=== PATIENT | female | born 1965 | race Two or more races ===

== ENCOUNTER 2017-09-03 11:26 | Emergency (ER) | payer MEDICAID ==
[~2017-09-03] VITALS: Ht 160 cm; Wt 90.3 kg
[~2017-09-03 11:26] MED LIST: CYMBALTA; GABA300C10; HYDR-1421; MECLIZINE; OMEP20TA34; PROVIGIL; [UNRECOGNIZED DRUG - CODE]
[2017-09-03 16:34] VITALS: BP 146/79
[2017-09-03] MEDS ORDERED: KETOROLAC TROMETH 60MG/2ML VIAL IM ONE (17:15)
== END 2017-09-03 17:45 | disposition home or self-care (01) ==
LOC: ER 11:26
DX: G89.29 Other chronic pain (principal); M54.9 Dorsalgia, unspecified; M79.1 Myalgia; I10 Essential (primary) hypertension
CPT/HCPCS: 73564; 73630; 96372; 99284; J1885

== ENCOUNTER 2024-11-13 05:48 | Inpatient (IN) | payer MEDICARE, MEDICAID ==
[~2024-11-13] VITALS: Ht 160 cm; Wt 97.3 kg
[~2024-11-13 05:48] MED LIST changes: +GABA-1250; -GABA300C10; +OMEP-337; -OMEP20TA34
--- NOTE | 2024-11-13 06:43 | ED.PDOC ---
GI ASSESSMENT HPI Comments HPI: Poor Historian. 59-year-old female presents to the emergency department for evaluation of lower abdominal pain that started as cramps then followed by bright red blood per rectum. Patient denies any associated nausea or vomiting or diarrhea. Denies any urinary symptoms. Patient takes oxycodone daily. Patient fell forward on her left knee proximally 10 days ago in complains of some left knee pain. Patient was ambulating independently in the ED. patient is not on blood thinners. Denies any other acute symptoms. Patient says she has chronic leg pain and joint pain but got worse on her left knee after the fall. Denies any other injury or trauma. Past Medical History: HLD, ANEMIA, HTN, fibromyalgia, arthritis, chronic pain syndrome Past Surgical History: INGUINAL & UMBILICAL HERNIA REPAIR, X 4, TONSILLECTOMY, Social History: DENIES TOBACCO, ETOH, & DRUG USE. Medications: OXYCODONE, SLEEP AID MEDICATION Allergies: NKDA REVIEW OF SYSTEMS: CONSTITUTIONAL: Denies acute: fever, diaphoresis, chills, generalized weakness. HEAD: Denies acute: headache, photophobia Eyes: Denies acute: Double vision, vision loss, eye pain, eye discharge. EARS: Denies acute: tinnitus, hearing loss, ear discharge, ear pain, THROAT: Denies acute: sore throat, swelling, difficulty swallowing , pain with swallowing, change in voice. NECK: Denies acute: neck pain, neck swelling, stiff neck. HEART: Denies acute : chest pain, palpitations, LUNGS: Denies acute: SOB, wheezing, cough, hemoptysis ABDOMEN: Denies acute: Nausea, Vomiting, diarrhea, melena , hematemesis, SKIN: Denies acute: rash, redness, lesions, itchiness. EXTREMITIES: Denies acute: calf pain, numbness, tingling, weakness, Denies acute: Low back pain. Neuro: Denies acute: focal neurological deficit, motor or sensory focal neurological deficit, tremors, seizure like activity, confusion, dizziness, change in mental status, loss of bowel or bladder function, cauda equina like symptoms. : Denies acute: dysuria, hematuria, flank pain, increase in urinary frequency. PSYCH: Denies acute: hallucination, suicidal ideation, homicidal ideation. FEMALE: Denies acute: abnormal vaginal bleeding, foul odor, unusual discharge. PHYSICAL EXAM: General: no acute distress, awake and alert. Head: normocephalic, atraumatic. Neck: supple, trachea is midline, no swelling. Throat: Normal phonation. Eyes:, no erythema, no purulent discharge, no proptosis, no icterus. Heart: regular rate, regular rhythm, no significant murmur appreciated. Lungs: no apparent respiratory distress, Able to speak in full sentences. No wheezing, no rhonchi, no crackles. No stridors Clear to auscultation bilaterally. Abdomen: Minimal bilateral lower abdominal tender to palpation, non distended, soft, no guarding, no rebound, + bowel sounds. Neuro: Awake, Alert, oriented to name, self, situation, follows commands GCS=15. Speech is normal. Skin: no petechia, no purpura, no cyanosis, non-pale, not jaundice. Lower extremities: --no - Pitting edema no deformity, no focal swelling, no calf TTP. Evaluation of the left knee. Minimal swelling. Some tenderness to palpation. No bruising or or deformity. Makes eye contact. moves all four extremities. Face: no apparent facial droop. Ambulating in the ED independently. ED COURSE: Chief Complaint: Abdominal Pain Time Seen by MD: 06:36 Primary Care Provider: LAURYN Reviewed Notes: Nurses Notes, Medications, Allergies Allergies: Coded Allergies: NO KNOWN ALLERGIES (Unverified , 03/07/10) Home Meds Reported Medications Cetirizine Hcl (Kls [place]) 10 Mg Tab, 1 TAB PO DAILY, #30 TAB 3 Refills 11/13/24 Zolpidem Tartrate (Zolpidem Tartrate) 5 Mg Tab, 1 TAB PO QPM, #30 TAB 1 Refill 11/13/24 Diclofenac Sodium (Topical) (Voltaren Arthritis Pain) 1 % Gel, 1 % EX, GEL 11/13/24 Pantoprazole Sodium (PANTOPRAZOLE SODIUM) 40 Mg Inj, 40 MG PO PRN, INJ 11/13/24 Venlafaxine Hcl (Venlafaxine Hcl Er) 150 Mg Cap, 1 CAP PO DAILY, #30 CAP 1 Refill 11/13/24 Oxycodone W/ Acetaminophen (Oxycodone and Acetaminoph 7.5-300 mg) 1 Tab Tab, 1 TAB PO Q8HPRN, TAB 11/13/24 [Cymbalta] No Conflict Check 03/07/10 Hydrocodone-Ibuprofen (Vicoprofen) Tab 03/07/10 [Provigil] No Conflict Check 03/07/10 [Meclizine] No Conflict Check 03/07/10 Omeprazole (Eq Omeprazole) 20 Mg Tab 03/07/10 Discontinued Reported Medications Hydrocodone-Acetaminophen (Vicodin) 1 Tab Tab 03/07/10 Gabapentin (Gabapentin) 300 Mg Cap 03/07/10 Information Source: Patient Mode of Arrival: Ambulatory Past Medical History PAST MEDICAL HISTORY: Anemia, HTN Surgical History: Hernia Repair GERM DRIER History: No Pertinent GERM DRIER History Family History Family History: Unknown Social History Smoker: Non-Smoker Alcohol: Denies ETOH Use Drugs: Denies Drug Use Lives In: Home Was a procedure done? Was a procedure done?: No GI differential Dx Differential Diagnosis: Other ( Diverticulitis, colitis, fistula, neoplasm, hemorrhoids, anal fissures, constipation, Crohn's disease, ulcerative colitis) X-Ray, Labs, Meds, VS Vital Signs Date Time Temp Pulse Resp B/P (MAP) Pulse Ox O2 Delivery O2 Flow Rate FiO2 11/13/24 08:02 97.9 71 18 145/83 (103) 96 97.9 11/13/24 07:35 Room Air* 0 21 11/13/24 05:56 97.7 84 16 132/67 (88) 97 Lab Test 11/13/24 06:47 11/13/24 06:01 Range/Units White Blood Count 6.2 4.4-10.8 10^3/uL Red Blood Count 4.74 4.0-5.20 10^6/uL Hemoglobin 14.3 12.2-16.2 g/dL Hematocrit 41.9 36.0-46.0 % Mean Corpuscular Volume 88.3 80.0-100.0 fL Mean Corpuscular Hemoglobin 30.1 28.0-32.0 pg Mean Corpuscular Hemoglobin Concent 34.1 32.0-36.0 g/dL Red Cell Distribution Width 13.8 11.8-14.3 % Platelet Count 263 140-450 10^3/uL Mean Platelet Volume 9.4 6.9-10.8 fL Neutrophils (%) (Auto) 58.4 37.0-80.0 % Lymphocytes (%) (Auto) 29.3 10.0-50.0 % Monocytes (%) (Auto) 7.0 0.0-12.0 % Eosinophils (%) (Auto) 3.9 0.0-7.0 % Basophils (%) (Auto) 1.4 0.0-2.0 % Neutrophils # (Auto) 3.6 1.6-8.6 10 ^3/uL Lymphocytes # (Auto) 1.8 0.4-5.4 10 ^3/uL Monocytes # (Auto) 0.4 0-1.3 10 ^3/uL Eosinophils # (Auto) 0.2 0-0.8 10 ^3/uL Basophils # (Auto) 0.1 0-0.2 10 ^3/uL Nucleated Red Blood Cells 0.1 % Prothrombin Time 10.0 9.3-11.8 sec Prothrombin Time INR 0.94 0.9-1.15 Activated Partial Thromboplast Time 27.6 24.5-34.5 SEC Sodium Level 145 136-145 mmol/L Potassium Level 4.1 3.5-5.1 mmol/L Chloride Level 111 H 98-107 mmol/L Carbon Dioxide Level 28 20-31 mmol/L Anion Gap 6 5-15 Blood Urea Nitrogen 19 9-23 mg/dL Creatinine 0.69 0.550-1.02 mg/dL Glomerular Filtration Rate Calc 100 >90 mL/min BUN/Creatinine Ratio 27.5 H 10.0-20.0 Serum Glucose 92 74-106 mg/dL Lactic Acid Level 0.9 0.4-2.0 mmol/L Calcium Level 9.6 8.7-10.4 mg/dL Total Bilirubin 0.5 0.2-1.0 mg/dL Aspartate Amino Transferase (AST) 27 13-40 U/L Alanine Aminotransferase (ALT) 28 7-40 U/L Alkaline Phosphatase 128 H 46-116 U/L Troponin I High Sensitivity < 3 L </=34 ng/L Total Protein 7.1 5.7-8.2 g/dL Albumin 4.6 3.2-4.8 g/dL Lipase 55 H 12-53 U/L Urine Color Light-yellow Yellow Urine Clarity Cloudy H Clear Urine pH 6.5 5.0-9.0 Urine Specific [place] 1.023 1.001-1.035 Urine Protein Negative Negative Urine Ketones Negative Negative Urine Blood Negative Negative /uL Urine Nitrite Negative Negative Urine Bilirubin Negative Negative Urine Urobilinogen Normal Negative mg/dL Urine Leukocyte Esterase 2+ Negative /uL Urine RBC None seen 0 - 4 /hpf Urine Microscopic WBC 3 0-5 /HPF Urine Squamous Epithelial Cells Few <5 /hpf Urine Bacteria Few H None Seen /hpf Urine Mucus Few None Seen Urine Glucose Normal Normal mg/dL Current Medications Medications (Trade) Dose Ordered Sig/Patsor Route Start Time Stop Time Status Last Admin Pantoprazole Sodium (Protonix) 40 mg ONCE ONCE IV 11/13/24 07:00 11/13/24 07:01 DC 11/13/24 08:00 Piperacillin Sod/ Tazobactam Sod 100 ml @ 100 mls/hr ONCE ONCE IV 11/13/24 08:15 11/13/24 09:14 DC 11/13/24 09:28 Acetaminophen/ Hydrocodone Bitart ([place] 5/325MG Tab) 1 tab Q6HPRN PRN PO 11/13/24 09:15 11/13/24 12:01 [place] [id number] Ph: [phone] DIAGNOSTIC IMAGING Diagnostic Imaging Report : [id number] Signed PATIENT: ANANT MONTOYA ACCT: [id number] UNIT: [id number] : 1965 LOC: ER ROOM / BED: / AGE / SEX: 59 / F ADM STATUS: REG ER SERVICE 0619 ORDERING PHYSICIAN: GAGANDEEP FRANCIS DO PROCEDURE(s): ABPL - CT AB PEL WO CON-NO ORAL OR IV REASON: abd pain, rectal bleed ORDER NUMBER(s): [id number], ACCESSION NUMBER(s): [id number] Exam: CT CT AB PEL WO CON-NO ORAL OR IV History: abd pain, rectal bleed Comparison Study: None available at time of dictation. Technique: Multidetector spiral CT of the abdomen and pelvis was performed from lung bases to pubic symphysis. Imaging was performed without intravenous contrast. Coronal and sagittal multiplanar reformats were obtained from the axial data set by the technologist. Radiation Dose : 1. Abdomen/Pelvis: CTDIvol 24.4 mGy, DLP 1636.2 mGy*cm. Findings: Evaluation of vasculature and solid organs is limited due to lack of intravenous contrast use. Lung Bases: Lung bases are clear. Visualized portions of the heart and pericardium are unremarkable. Liver: The liver is normal in size. No focal lesions. Gallbladder and Biliary Tree: The gallbladder is unremarkable. No intrahepatic or extrahepatic biliary ductal dilatation. Spleen: Unremarkable Pancreas: The pancreas is grossly unremarkable. Adrenal Glands: Unremarkable Kidneys: Kidneys are unremarkable without calculi or hydronephrosis. GI tract: The stomach is grossly normal in appearance. No evidence of small bowel wall thickening or abnormal dilatation to suggest bowel obstruction. Sigm oid diverticulosis without acute diverticulitis. Normal appendix. Peritoneum/mesentery/retroperitoneum. No evidence of free intraperitoneal air. No ascites. No evidence of suspicious lymphadenopathy. Abdominal Wall: There is a fat containing supraumbilical hernia. There is fat stranding in the hernia. There is a small fat containing umbilical hernia. Vasculature: The visualized abdominal aorta is normal in size and caliber. Evaluation of abdominal and pelvic vessels is limited due to lack of intravenous contrast. Urinary Bladder: Grossly unremarkable for degree of distention. Pelvic Organs: Hysterectomy. Musculoskeletal: No aggressive focal bony lesions, acute fractures or dislocation. IMPRESSION: 1. Fat containing supraumbilical hernia with stranding of the fat. Correlation for incarcerated hernia recommended. 2. Sigmoid diverticulosis without acute diverticulitis. 3. No free fluid or pneumoperitoneum. ATED BY: RUBY JIMENEZ MD DICTATED DATE/TIME: 11/13/24711 SIGNED BY: RUBY JIMENEZ MD SIGNED DATE/TIME: 11/13/24711 [place] [address] Ph: [phone] DIAGNOSTIC IMAGING Diagnostic Imaging Report : [id number] Signed PATIENT: ANANT MONTOYA ACCT: [id number] UNIT: [id number] : 1965 LOC: ER ROOM / BED: / AGE / SEX: 59 / F ADM STATUS: REG ER SERVICE 8 ORDERING PHYSICIAN: GAGANDEEP FRANCIS DO PROCEDURE(s): LKNE3 - L KNEE 3V XRAY REASON: fall ORDER NUMBER(s): [id number], ACCESSION NUMBER(s): [id number] CLINICAL INDICATION: fall TECHNIQUE: XY L KNEE 3V XRAY Comparison: None FINDINGS/IMPRESSION: : There is no evidence of acute fracture or dislocation. Small joint effusion. ATED BY: MIKE SEAY MD DICTATED DATE/TIME: 11/13/24644 SIGNED BY: MIKE SEAY MD SIGNED DATE/TIME: 11/13/24644 CC: [place] [address] Ph: [phone] DIAGNOSTIC IMAGING Diagnostic Imaging Report : [id number] Signed PATIENT: ANANT MONTOYA ACCT: [id number] UNIT: [id number] : 1965 LOC: ER ROOM / BED: / AGE / SEX: 59 / F ADM STATUS: REG ER SERVICE 5 ORDERING PHYSICIAN: GAGANDEEP FRANCIS DO PROCEDURE(s): LLDVT - LT Lower DVT REASON: pain ORDER NUMBER(s): [id number], ACCESSION NUMBER(s): [id number] EXAM: US Duplex Left Lower Extremity Veins CLINICAL INDICATION: pain TECHNIQUE: Real-time duplex ultrasound scan of the left lower extremity veins integrating B-mode two-dimensional vascular structure, Doppler spectral analysis, color flow Doppler imaging and compression. COMPARISON: None FINDINGS: DEEP VEINS: Unremarkable. No DVT in the visualized common femoral, femoral, proximal deep femoral or popliteal veins. The veins demonstrate normal color flow, are normally compressible, with normal phasic flow and/or augmentation response. SUPERFICIAL VEINS: Unremarkable. No thrombus in the visualized great saphenous vein. SOFT TISSUES: Probable Menchaca's cysts measuring up to 3.7 cm. OTHER FINDINGS: . IMPRESSION: No DVT. ATED BY: JESUS QUINONES MD DICTATED DATE/TIME: 11/13/24742 SIGNED BY: JESUS QUINONES MD SIGNED DATE/TIME: 11/13/24742 Images Reviewed?: Images reviewed and evaluated by me Time of 1ST Reevaluation: 07:06 Reevaluation 1ST: Unchanged Patient Education/Counseling: Diagnosis, Treatment, Prognosis Family Education/Counseling: Diagnosis, Treatment, Prognosis Comments Patient presented with the above HPI.---rectal bleed---workup was initiated. patient was found with the above mentioned diagnosis. the following medications were ordered: please refer to order lists of meds and tests obtained by myself Dr. Francis. Patient ED course and VS have been stabilized. Patient has been reassessed in the ED and remained in a stable condition. Pertinent incidental findings were discussed with the patient and/or family. Patient/family voices understanding and is agreeable with plan. Patient has been observed in the ED adequate length of time to insure improvement/stability. Escalation of care considered: Consideration of escalation to observation or admission Patient was ADMITTED to the medicine team for further evaluation and treatment of their presentation. General surgery was consulted. All the reports of any imaging studies that were ordered by myself were reviewed by myself. Departure 1 Departure Time of Disposition: 08:14 Impression: Primary Impression: Rectal bleeding Additional Impressions: Incarcerated hernia UTI (urinary tract infection) Disposition: ADMITTED INPATIENT Admit to: Tele Condition: Guarded Discharged With: Self Critical Care Note Critical Care Time?: No I personally scribed for GAGANDEEP FRANCIS DO ([email or web address]) on 11/13/24 at 06:43. Electronically submitted by Klaus Gillespie ([email or web address]). I personally scribed for GAGANDEEP FRANCIS DO ([email or web address]) on 11/13/24 at 06:44. Electronically submitted by Klaus Gillespie ([email or web address]). I personally scribed for GAGANDEEP FRANCIS DO ([email or web address]) on 11/13/24 at 08:11. Electronically submitted by Klaus Gillespie ([email or web address]). GAGANDEEP FRANCIS DO Nov 13, 2024 06:43
--- NOTE | 2024-11-13 06:50 | DVH ---
CLINICAL INDICATION: fall TECHNIQUE: XY L KNEE 3V XRAY Comparison: None FINDINGS/IMPRESSION: : There is no evidence of acute fracture or dislocation. Small joint effusion.
[2024-11-13 07:01] LABS: Basophils # (auto) 0.1 10 ^3/uL (0-0.2); Basophils % (auto) 1.4 % (0.0-2.0); Eosinophils # (auto) 0.2 10 ^3/uL (0-0.8); Eosinophils % (auto) 3.9 % (0.0-7.0); Hematocrit 41.9 % (36.0-46.0); Hemoglobin 14.3 g/dL (12.2-16.2); Lymphocytes # (auto) 1.8 10 ^3/uL (0.4-5.4); Lymphocytes % (auto) 29.3 % (10.0-50.0); Mean Corpuscular Hemoglobin 30.1 pg (28.0-32.0); Mean Corpuscular Hgb Conc. 34.1 g/dL (32.0-36.0); Mean Corpuscular Volume 88.3 fL (80.0-100.0); Monocytes # (auto) 0.4 10 ^3/uL (0-1.3); Neutrophils # (auto) 3.6 10 ^3/uL (1.6-8.6); Neutrophils % (auto) 58.4 % (37.0-80.0); Nucleated Red Blood Cells % 0.1 %; Platelet Count (auto) 263 10^3/uL (140-450); Red Blood Cells 4.74 10^6/uL (4.0-5.20); Red Cell Distribution Width 13.8 % (11.8-14.3); White Blood Cell 6.2 10^3/uL (4.4-10.8)
--- NOTE | 2024-11-13 07:15 | DVH ---
Exam: CT CT AB PEL WO CON-NO ORAL OR IV History: abd pain, rectal bleed Comparison Study: None available at time of dictation. Technique: Multidetector spiral CT of the abdomen and pelvis was performed from lung bases to pubic s ymphysis. Imaging was performed without intravenous contrast. Coronal and sagittal multiplanar reform ats were obtained from the axial data set by the technologist. Radiation Dose : 1. Abdomen/Pelvis: CTDIvol 24.4 mGy, DLP 1636.2 mGy*cm. Findings: Evaluation of vasculature and solid organs is limited due to lack of intravenous contrast use. Lung Bases: Lung bases are clear. Visualized portions of the heart and pericardium are unremarkable. Liver: The liver is normal in size. No focal lesions. Gallbladder and Biliary Tree: The gallbladder is unremarkable. No intrahepatic or extrahepatic bilia ry ductal dilatation. Spleen: Unremarkable Pancreas: The pancreas is grossly unremarkable. Adrenal Glands: Unremarkable Kidneys: Kidneys are unremarkable without calculi or hydronephrosis. GI tract: The stomach is grossly normal in appearance. No evidence of small bowel wall thickening or abnormal dilatation to suggest bowel obstruction. Sigmoid diverticulosis without acute diverticulitis . Normal appendix. Peritoneum/mesentery/retroperitoneum. No evidence of free intraperitoneal air. No ascites. No evidenc e of suspicious lymphadenopathy. Abdominal Wall: There is a fat containing supraumbilical hernia. There is fat stranding in the herni a. There is a small fat containing umbilical hernia. Vasculature: The visualized abdominal aorta is normal in size and caliber. Evaluation of abdominal a nd pelvic vessels is limited due to lack of intravenous contrast. Urinary Bladder: Grossly unremarkable for degree of distention. Pelvic Organs: Hysterectomy. Musculoskeletal: No aggressive focal bony lesions, acute fractures or dislocation. IMPRESSION: 1. Fat containing supraumbilical hernia with stranding of the fat. Correlation for incarcerated osmany ia recommended. 2. Sigmoid diverticulosis without acute diverticulitis. 3. No free fluid or pneumoperitoneum.
[2024-11-13 07:17] LABS: Alanine Aminotransferase 28 U/L (7-40); Albumin 4.6 g/dL (3.2-4.8); Anion Gap 6 (5-15); Aspartate Aminotransferase 27 U/L (13-40); BUN/Creatinine Ratio 27.5 (10.0-20.0); Blood Urea Nitrogen 19 mg/dL (9-23); Calcium 9.6 mg/dL (8.7-10.4); Carbon Dioxide 28 mmol/L (20-31); Glucose 92 mg/dL (74-106); Potassium 4.1 mmol/L (3.5-5.1); Sodium 145 mmol/L (136-145); Total Protein 7.1 g/dL (5.7-8.2)
[2024-11-13 07:18] LABS: Bilirubin, Total 0.5 mg/dL (0.2-1.0)
[2024-11-13 07:30] LABS: Alkaline Phosphatase 128 U/L (46-116); Chloride 111 mmol/L (98-107)
[2024-11-13 07:36] LABS: Urine Bacteria FEW /hpf (None Seen); Urine Blood Negative /uL (Negative); Urine Color Light-Yellow (Yellow); Urine Mucus FEW (None Seen); Urine Protein, UAD Negative (Negative); Urine Specific Gravity 1.023 (1.001-1.035); Urine Squamous Epithelial Cell FEW /hpf (<5); Urine Urobilinogen Normal (Negative); Urine WBC 3 /HPF (0-5); Urine pH 6.5 (5.0-9.0)
[2024-11-13 07:41] LABS: Urine Clarity Cloudy (Clear)
--- NOTE | 2024-11-13 07:46 | DVH ---
EXAM: US Duplex Left Lower Extremity Veins CLINICAL INDICATION: pain TECHNIQUE: Real-time duplex ultrasound scan of the left lower extremity veins integrating B-mode two -dimensional vascular structure, Doppler spectral analysis, color flow Doppler imaging and compressio n. COMPARISON: None FINDINGS: DEEP VEINS: Unremarkable. No DVT in the visualized common femoral, femoral, proximal deep femoral or popliteal veins. The veins demonstrate normal color flow, are normally compressible, with normal phasic flow and/or augmentation response. SUPERFICIAL VEINS: Unremarkable. No thrombus in the visualized great saphenous vein. SOFT TISSUES: Probable Menchaca's cysts measuring up to 3.7 cm. OTHER FINDINGS: . IMPRESSION: No DVT.
[2024-11-13 07:54] LABS: Lipase 55 U/L (12-53)
[2024-11-13] MEDS: PANTOPRAZOLE 40 MG/10 ML VIAL INJ IV ONE (08:00)
[2024-11-13 08:43] LABS: INR 0.94 (0.9-1.15); Partial Thromboplastin Time 27.6 SEC (24.5-34.5)
[2024-11-13] MEDS ORDERED: ONDANSETRON HCL 4 MG/2 ML VIAL IV PRN (09:15)
[2024-11-13] MEDS ORDERED: MORPHINE SULFATE INJ 2 MG/ml SYRG IV PRN (09:15)
[2024-11-13] MEDS ORDERED: ACETAMINOPHEN 500 MG TAB or CAP PO PRN (09:15)
--- NOTE | 2024-11-13 09:19 | DVHHP2 ---
History of Present Illness Reason for Visit: Abdominal pain, constipation, left leg weakness History of Present Illness Patient was a 59-year-old female presenting to the emergency room with complaints of abdominal pain, left inguinal pain, constipation, and left leg weakness. Patient was states that she has been dealing with both ventral and left inguinal hernia for quite some time, stating that she was had surgery in the past two both hernias. She states that she continues to have bulging to her upper abdomen and pain to her left inguinal area. She states that she has inter mittent constipation with her last bowel movement having some strict bleeding with her stool. There is significant history of the patient includes fibromyalgia, chronic opiate use with oxycodone, dyslipidemia, and hypertension. Cardiovascular: HTN, hyperipidemia GI: Constipation Rheumatologic: Fibromyalgia Past Surgical History: , Other (Hernia surgery to left inguinal and ventral hernia) Family History: None Smoke: No ALCOHOL: none Drugs: None Lives: with Family Domestic Violence: Neg Review of Systems Constitutional: No: Fever, Chills, Sweats, Weakness, Malaise, Other Eyes: No: Pain, Vision change, Conjunctivae inflammation, Eyelid inflammation, Other, Redness ENT: No: Ear pain, Ear discharge, Nose pain, Nose discharge, Nose congestion, Mouth pain, Mouth swelling, Throat pain, Throat swelling, Other Respiratory: No: Cough, Dry, Shortness of breath, SOB with excertion, Wheezing, Hemoptysis, Pleuritic Pain, Sputum, Wheezing, Other Cardiovascular: No: Chest Pain, Palpitations, Orthopnea, Paroxysmal Noc. Dyspnea, Edema, Lt Headedness, Other Gastrointestinal: Abdominal Pain, Constipation Genitourinary: No Dysuria, No Frequency, No Incontinence, No Hematuria, No Retention, No Other Musculoskeletal: No: other, neck pain, shoulder pain, arm pain, back pain, hand pain, leg pain, foot pain Skin: No: Rash, Lesions, Jaundice, Bruising, Other Neurological: No: Weakness, Numbness, Incoordination, Change in speech, Confusion, Seizures, Other Allergies: Coded Allergies: NO KNOWN ALLERGIES (Unverified , 03/07/10) Medications Current Medications Medications Dose Ordered Sig/Pastor Route Start Time Stop Time Status Last Admin Dose Admin Docusate Sodium 100 mg BID PO 11/13/24 10:00 UNV Morphine Sulfate 1 mg Q4HPRN PRN IV 11/13/24 09:15 UNV Acetaminophen/ Hydrocodone Bitart 1 tab Q6HPRN PRN PO 11/13/24 09:15 UNV Acetaminophen 500 mg Q8HP PRN PO 11/13/24 09:15 UNV Ondansetron HCl 4 mg Q6HP PRN IV 11/13/24 09:15 UNV Lisinopril 5 mg DAILY PO 11/13/24 10:00 UNV Pantoprazole Sodium 40 mg DAILY IV 11/13/24 10:00 UNV Exam Vital Signs Vital Signs Date Time Temp Pulse Resp B/P (MAP) Pulse Ox O2 Delivery O2 Flow Rate FiO2 11/13/24 08:02 97.9 71 18 145/83 (103) 96 97.9 11/13/24 07:35 Room Air* 0 21 General Appearance: Alert, Oriented X3, Cooperative, mild distress HEENT: Atraumatic, PERRLA Respiratory: Clear to auscultation, Normal air movement Cardiovascular: Normal S1, Normal S2 Abdominal: Normal bowel sounds, Soft, Other (Supraumbilical hernia, left inguinal hernia) Extremities: No clubbing, No cyanosis, Normal pulses, No tenderness/swelling, Other (Plus one bilateral lower extremity edema) Skin: No rashes, No breakdown Neuro: Normal gait, Normal speech, Sensation intact, Cranial nerves 3-12 NL Psych/Mental Status: Mental status NL, Mood NL Labs/Xrays Labs Test 11/13/24 06:47 11/13/24 06:01 Range/Units White Blood Count 6.2 4.4-10.8 10^3/uL Red Blood Count 4.74 4.0-5.20 10^6/uL Hemoglobin 14.3 12.2-16.2 g/dL Hematocrit 41.9 36.0-46.0 % Mean Corpuscular Volume 88.3 80.0-100.0 fL Mean Corpuscular Hemoglobin 30.1 28.0-32.0 pg Mean Corpuscular Hemoglobin Concent 34.1 32.0-36.0 g/dL Red Cell Distribution Width 13.8 11.8-14.3 % Platelet Count 263 140-450 10^3/uL Mean Platelet Volume 9.4 6.9-10.8 fL Neutrophils (%) (Auto) 58.4 37.0-80.0 % Lymphocytes (%) (Auto) 29.3 10.0-50.0 % Monocytes (%) (Auto) 7.0 0.0-12.0 % Eosinophils (%) (Auto) 3.9 0.0-7.0 % Basophils (%) (Auto) 1.4 0.0-2.0 % Neutrophils # (Auto) 3.6 1.6-8.6 10 ^3/uL Lymphocytes # (Auto) 1.8 0.4-5.4 10 ^3/uL Monocytes # (Auto) 0.4 0-1.3 10 ^3/uL Eosinophils # (Auto) 0.2 0-0.8 10 ^3/uL Basophils # (Auto) 0.1 0-0.2 10 ^3/uL Nucleated Red Blood Cells 0.1 % Prothrombin Time 10.0 9.3-11.8 sec Prothrombin Time INR 0.94 0.9-1.15 Activated Partial Thromboplast Time 27.6 24.5-34.5 SEC Sodium Level 145 136-145 mmol/L Potassium Level 4.1 3.5-5.1 mmol/L Chloride Level 111 H 98-107 mmol/L Carbon Dioxide Level 28 20-31 mmol/L Anion Gap 6 5-15 Blood Urea Nitrogen 19 9-23 mg/dL Creatinine 0.69 0.550-1.02 mg/dL Glomerular Filtration Rate Calc 100 >90 mL/min BUN/Creatinine Ratio 27.5 H 10.0-20.0 Serum Glucose 92 74-106 mg/dL Lactic Acid Level 0.9 0.4-2.0 mmol/L Calcium Level 9.6 8.7-10.4 mg/dL Total Bilirubin 0.5 0.2-1.0 mg/dL Aspartate Amino Transferase (AST) 27 13-40 U/L Alanine Aminotransferase (ALT) 28 7-40 U/L Alkaline Phosphatase 128 H 46-116 U/L Troponin I High Sensitivity < 3 L </=34 ng/L Total Protein 7.1 5.7-8.2 g/dL Albumin 4.6 3.2-4.8 g/dL Lipase 55 H 12-53 U/L Urine Color Light-yellow Yellow Urine Clarity Cloudy H Clear Urine pH 6.5 5.0-9.0 Urine Specific [place] 1.023 1.001-1.035 Urine Protein Negative Negative Urine Ketones Negative Negative Urine Blood Negative Negative /uL Urine Nitrite Negative Negative Urine Bilirubin Negative Negative Urine Urobilinogen Normal Negative mg/dL Urine Leukocyte Esterase 2+ Negative /uL Urine RBC None seen 0 - 4 /hpf Urine Microscopic WBC 3 0-5 /HPF Urine Squamous Epithelial Cells Few <5 /hpf Urine Bacteria Few H None Seen /hpf Urine Mucus Few None Seen Urine Glucose Normal Normal mg/dL Assessment/Plan Assessment/Plan Impression: -ventral and left inguinal hernia -constipation -rectal bleeding -obesity -primary hypertension -dyslipidemia -chronic opiate use -complicated cystitis Plan: -admit to Medical/Surgical unit -agree with surgical consultation -patient ambulating, denies having nausea or vomiting. Attempt clear liquid diet -stool softeners -continue antibiotic therapy with Zosyn -antihypertensive -PUD, DVT prophylaxis -chest x-ray -further course of treatment per surgical recommendations Total time spent with patient discussing and formulating plan of care: 35 minutes. This medical document was created using an electronic medical record system with [employer] dictation system. Although this document has been carefully reviewed, there may still be some phonetic and typographical errors. These areas are purely typographical due to imperfections of the software programs, and do not reflect any compromise in the patient's medical care. Plan discussed with: Patient, Other (RN) My Orders Orders - DOC IRBY NP Procedure Category Date Status Time Admit ADMIT 11/13/24 Transmitted 09:04 Oxygen By Nasal RT 11/13/24 Transmitted Cannula 09:04 Clear Liq Diet DIET 11/13/24 Transmitted Breakfast Docusate Sodium PHA 11/13/24 Logged Capsule (Colace 10:00 Urine Bacterial GARO 11/13/24 Logged Culture 09:04 Morphine Sulfate PHA 11/13/24 Logged Injection 09:15 Hydrocodone-Acet PHA 11/13/24 Logged 5/325mg Tab ([place] 09:15 Acetaminophen Tab Or PHA 11/13/24 Logged Cap (Tylenol Tablet 09:15 Ondansetron Hcl PHA 11/13/24 Logged (Zofran) 09:15 Sequential LING 11/13/24 In Process Compression Device 09:04 BRP LING 11/13/24 In Process 09:04 Stool Occult Blood LAB 11/13/24 Logged 09:04 Lisinopril Tablet PHA 11/13/24 Logged (Zestril Tablet) 10:00 Chest Xray 1 View XY 11/13/24 Logged 09:04 Pantoprazole PHA 11/13/24 Logged (Protonix) 10:00 Date of Service: Nov 13, 2024 Billing Provider: DOC IRBY NP Common Visit Codes: [id number] INP/OBS CARE (HIGH) DOC IRBY NP Nov 13, 2024 09:19
[2024-11-13] MEDS: PIPERACILLIN-TAZOB 3.375GM 100 ML IV ONE (09:28)
--- NOTE | 2024-11-13 09:36 | DVH ---
CHEST RADIOGRAPH Indication: Pain Technique: Single frontal view of the chest was obtained COMPARISON: None FINDINGS: Lines and Tubes: None Lungs: Clear Pleura: No effusion. No pneumothorax. Cardiomediastinal contours: Unremarkable Bones: Unremarkable IMPRESSION: No acute disease.
[2024-11-13] MEDS: DOCUSATE SOD 100 MG CAP PO SCH (10:19)
[2024-11-13] MEDS: LISINOPRIL 5 MG TAB PO SCH (10:20)
--- NOTE | 2024-11-13 11:30 | DVHINCON2 ---
Date of service: Nov 13, 2024 Allergies: Coded Allergies: NO KNOWN ALLERGIES (Unverified , 03/07/10) Home Meds Reported Medications [Cymbalta] No Conflict Check 03/07/10 Hydrocodone-Ibuprofen (Vicoprofen) Tab 03/07/10 Hydrocodone-Acetaminophen (Vicodin) 1 Tab Tab 03/07/10 [Provigil] No Conflict Check 03/07/10 [Meclizine] No Conflict Check 03/07/10 Gabapentin (Gabapentin) 300 Mg Cap 03/07/10 Omeprazole (Eq Omeprazole) 20 Mg Tab 03/07/10 Current Medications Current Medications Medications (Trade) Dose Ordered Sig/Pastor Route PRN Reason Start Time Stop Time Status Last Admin Docusate Sodium (Colace Capsule) 100 mg BID PO 11/13/24 10:00 11/13/24 10:19 Morphine Sulfate 1 mg Q4HPRN PRN IV SEVERE PAIN (7-10 PAIN SCALE) 11/13/24 09:15 Acetaminophen/ Hydrocodone Bitart ([place] 5/325MG Tab) 1 tab Q6HPRN PRN PO MODERATE PAIN (4-6 PAIN SCALE) 11/13/24 09:15 Acetaminophen (Tylenol Tablet Or Capsule) 500 mg Q8HP PRN PO PAIN SCALE 1-3 OR TEMP>100.4 11/13/24 09:15 Ondansetron HCl (Zofran) 4 mg Q6HP PRN IV NAUSEA / VOMITING 11/13/24 09:15 Lisinopril (Zestril Tablet) 5 mg DAILY PO 11/13/24 10:00 11/13/24 10:20 Pantoprazole Sodium (Protonix) 40 mg DAILY IV 11/14/24 10:00 Vital Signs Vital Signs Date Time Temp Pulse Resp B/P (MAP) Pulse Ox O2 Delivery O2 Flow Rate FiO2 11/13/24 10:20 135/82 11/13/24 08:02 97.9 71 18 96 97.9 11/13/24 07:35 Room Air* 0 21 Labs/Diagnostic Data Labs Test 11/13/24 06:47 11/13/24 06:01 Range/Units White Blood Count 6.2 4.4-10.8 10^3/uL Red Blood Count 4.74 4.0-5.20 10^6/uL Hemoglobin 14.3 12.2-16.2 g/dL Hematocrit 41.9 36.0-46.0 % Mean Corpuscular Volume 88.3 80.0-100.0 fL Mean Corpuscular Hemoglobin 30.1 28.0-32.0 pg Mean Corpuscular Hemoglobin Concent 34.1 32.0-36.0 g/dL Red Cell Distribution Width 13.8 11.8-14.3 % Platelet Count 263 140-450 10^3/uL Mean Platelet Volume 9.4 6.9-10.8 fL Neutrophils (%) (Auto) 58.4 37.0-80.0 % Lymphocytes (%) (Auto) 29.3 10.0-50.0 % Monocytes (%) (Auto) 7.0 0.0-12.0 % Eosinophils (%) (Auto) 3.9 0.0-7.0 % Basophils (%) (Auto) 1.4 0.0-2.0 % Neutrophils # (Auto) 3.6 1.6-8.6 10 ^3/uL Lymphocytes # (Auto) 1.8 0.4-5.4 10 ^3/uL Monocytes # (Auto) 0.4 0-1.3 10 ^3/uL Eosinophils # (Auto) 0.2 0-0.8 10 ^3/uL Basophils # (Auto) 0.1 0-0.2 10 ^3/uL Nucleated Red Blood Cells 0.1 % Prothrombin Time 10.0 9.3-11.8 sec Prothrombin Time INR 0.94 0.9-1.15 Activated Partial Thromboplast Time 27.6 24.5-34.5 SEC Sodium Level 145 136-145 mmol/L Potassium Level 4.1 3.5-5.1 mmol/L Chloride Level 111 H 98-107 mmol/L Carbon Dioxide Level 28 20-31 mmol/L Anion Gap 6 5-15 Blood Urea Nitrogen 19 9-23 mg/dL Creatinine 0.69 0.550-1.02 mg/dL Glomerular Filtration Rate Calc 100 >90 mL/min BUN/Creatinine Ratio 27.5 H 10.0-20.0 Serum Glucose 92 74-106 mg/dL Lactic Acid Level 0.9 0.4-2.0 mmol/L Calcium Level 9.6 8.7-10.4 mg/dL Total Bilirubin 0.5 0.2-1.0 mg/dL Aspartate Amino Transferase (AST) 27 13-40 U/L Alanine Aminotransferase (ALT) 28 7-40 U/L Alkaline Phosphatase 128 H 46-116 U/L Troponin I High Sensitivity < 3 L </=34 ng/L Total Protein 7.1 5.7-8.2 g/dL Albumin 4.6 3.2-4.8 g/dL Lipase 55 H 12-53 U/L Urine Color Light-yellow Yellow Urine Clarity Cloudy H Clear Urine pH 6.5 5.0-9.0 Urine Specific [place] 1.023 1.001-1.035 Urine Protein Negative Negative Urine Ketones Negative Negative Urine Blood Negative Negative /uL Urine Nitrite Negative Negative Urine Bilirubin Negative Negative Urine Urobilinogen Normal Negative mg/dL Urine Leukocyte Esterase 2+ Negative /uL Urine RBC None seen 0 - 4 /hpf Urine Microscopic WBC 3 0-5 /HPF Urine Squamous Epithelial Cells Few <5 /hpf Urine Bacteria Few H None Seen /hpf Urine Mucus Few None Seen Urine Glucose Normal Normal mg/dL Assessment [id number] REDUCIBLE SUPRAUMBILICAL VENTRAL HERNIA NO CLINICAL/RADIOLOGIC LIH NO SBO NON ACUTE ABDOMEN CONSTIPATION CLOSE OBSERVATION CONSIDER EMERGENT/ELECTIVE SURGERY INDICATED BASED ON ONGOING EVAL Plan discussed with: Patient ZACK NUNO MD Nov 13, 2024 11:30
[2024-11-13] MEDS: HYDROcodone-ACET 5/325MG TAB PO PRN (12:01)
[2024-11-13 12:02] VITALS: BP 135/98; PULSE 65; RESP 20; TEMP 97.8; O2SAT 97
[2024-11-13] MEDS ORDERED: OXYC-1050 PO (12:43)
[2024-11-13] MEDS ORDERED: CETI10TA2 PO (12:43)
[2024-11-13] MEDS ORDERED: ZOLP5TAB5 PO (12:43)
[2024-11-13] MEDS ORDERED: DICL1GEL59 EX (12:43)
[2024-11-13] MEDS ORDERED: PANT1INJ3 PO (12:43)
[2024-11-13] MEDS ORDERED: VENL150C58 PO (12:43)
[2024-11-13 13:30] VITALS: BP 119/74; PULSE 65; RESP 18; TEMP 98.2; O2SAT 97
--- NOTE | 2024-11-13 15:00 | DVHINCON2 ---
DATE OF CONSULTATION: 11/13/2024 HISTORY OF PRESENT ILLNESS: This patient is 59 years old, coming in with abdominal pain, left groin pain, constipation, left leg weakness, and she has been dealing with this hernias for a while according to her and she has had surgery done in the past for both the two hernias and she continues to have the bulge in her upper abdomen and in her left lower quadrant area. No nausea, vomiting. No constipation, diarrhea. No hematemesis, melena. No bleeding per rectum. PAST MEDICAL HISTORY: Hypertension and constipation. PAST SURGICAL HISTORY: and hernia repairs as mentioned above. Details are not clear. This was done at [facility] [place]. PHYSICAL EXAMINATION: VITAL SIGNS: Afebrile, stable signs. HEENT: With no evidence of pallor, cyanosis, or jaundice. NECK: Supple, nontender with no thyromegaly, lymphadenopathy. CHEST AND LUNGS: Clear. HEART: Within normal limits. ABDOMEN: Soft. She has a reducible ventral hernia. No clinical left inguinal hernia and at this point does not have any acute abdomen. NEUROLOGIC: Not assessed. EXTREMITIES: Unremarkable. CLINICAL IMPRESSION: Reducible ventral hernia and a nonclinical left inguinal hernia. CT scan is not indicating any left inguinal hernia and the CT scan is also suggesting a possibility of an incarcerated ventral hernia with fatty tissue only. There is no bowel obstruction on examination. Clinically, she is tender, but there is no acute abdomen, so my clinical impression is she has a ventral hernia that does not appear to have a strangulation. There is no clinical left inguinal hernia at this point, and there is no issue of a bowel obstruction. She has constipation. PLAN: The plan would be to manage her conservatively, consider elective surgery for hernias and manage her constipation and then consider discharge based upon ongoing evaluation. MD ION Kim/TYE TID: [id number] RECEIPT: [id number] cc: Toby Resendiz NP
--- NOTE | 2024-11-13 16:49 | DVHINCON2 ---
Date of service: Nov 13, 2024 Referring Physician Tia Alexis Reason for Consultation GI bleed Abdominal pain History of Present Illness The patient is a 59-year-old female with a history of rheumatoid arthritis, fibromyalgia, history of chronic abdominal pain, history of ventral and left inguinal hernia that are both been are recurrent. Patient was seen by Dr. Tia Alexis. Patient states that she came into the emergency room for her abdominal pain there has been worsening, as well as bright red blood per rectum. Her last colonoscopy was nine years ago and she states that she had holes in her colon. She denies any fevers or chills. She has nausea and does not have much of an appetite. She denies any dysphagia or hematemesis. She denies any chest pain or shortness of breath. Patient takes pain medication methocarbamol as well as oxycodone for her chronic pain issues. Patient has not been seen by a GI doctor recently. She states that she has some rectal pain and chronic constipation and she is afraid to push at times because it will increase her pain. Patient states that she had bright red blood per rectum in her stool as well as with wiping. Past Medical History As above Past Surgical History Hernia repairs as above Family History: Patient reports no known family medical history. Family History No gastrointestinal diseases or malignancies Social History Denies tobacco alcohol or recreational drug use Allergies: Coded Allergies: NO KNOWN ALLERGIES (Unverified , 03/07/10) Home Meds Reported Medications Cetirizine Hcl ([place]) 10 Mg Tab, 1 TAB PO DAILY, #30 TAB 3 Refills 11/13/24 Zolpidem Tartrate (Zolpidem Tartrate) 5 Mg Tab, 1 TAB PO QPM, #30 TAB 1 Refill 11/13/24 Diclofenac Sodium (Topical) (Voltaren Arthritis Pain) 1 % Gel, 1 % EX, GEL 11/13/24 Pantoprazole Sodium (PANTOPRAZOLE SODIUM) 40 Mg Inj, 40 MG PO PRN, INJ 11/13/24 Venlafaxine Hcl (Venlafaxine Hcl Er) 150 Mg Cap, 1 CAP PO DAILY, #30 CAP 1 Refill 11/13/24 Oxycodone W/ Acetaminophen (Oxycodone and Acetaminoph 7.5-300 mg) 1 Tab Tab, 1 TAB PO Q8HPRN, TAB 11/13/24 [Cymbalta] No Conflict Check 03/07/10 Hydrocodone-Ibuprofen (Vicoprofen) Tab 03/07/10 [Provigil] No Conflict Check 03/07/10 [Meclizine] No Conflict Check 03/07/10 Omeprazole (Eq Omeprazole) 20 Mg Tab 03/07/10 Discontinued Reported Medications Hydrocodone-Acetaminophen (Vicodin) 1 Tab Tab 03/07/10 Gabapentin (Gabapentin) 300 Mg Cap 03/07/10 Current Medications Current Medications Medications (Trade) Dose Ordered Sig/Pastor Route PRN Reason Start Time Stop Time Status Last Admin Docusate Sodium (Colace Capsule) 100 mg BID PO 11/13/24 10:00 11/13/24 10:19 Morphine Sulfate 1 mg Q4HPRN PRN IV SEVERE PAIN (7-10 PAIN SCALE) 11/13/24 09:15 Acetaminophen/ Hydrocodone Bitart ([place] 5/325MG Tab) 1 tab Q6HPRN PRN PO MODERATE PAIN (4-6 PAIN SCALE) 11/13/24 09:15 11/13/24 12:01 Acetaminophen (Tylenol Tablet Or Capsule) 500 mg Q8HP PRN PO PAIN SCALE 1-3 OR TEMP>100.4 11/13/24 09:15 Ondansetron HCl (Zofran) 4 mg Q6HP PRN IV NAUSEA / VOMITING 11/13/24 09:15 Lisinopril (Zestril Tablet) 5 mg DAILY PO 11/13/24 10:00 11/13/24 10:20 Pantoprazole Sodium (Protonix) 40 mg DAILY IV 11/14/24 10:00 Review of Systems Constitutional: No fevers or chills or weight loss Head: No visual changes or headaches Cardiac: No chest pain or palpitations PULM: No cough wheeze or shortness of breath GI: See HPI Rheumatology: See HPI skin: No rashes bruises or pruritus Psych: She has anxiety denies depression or psychosis Neuro: No stroke or seizure heme: No history of malignancy Endocrine: History of hyperlipidemia Vital Signs Vital Signs Date Time Temp Pulse Resp B/P (MAP) Pulse Ox O2 Delivery O2 Flow Rate FiO2 11/13/24 13:30 98.2 65 18 119/74 (89) 97 98.2 11/13/24 12:02 Room Air* 0 21 Physical Exam General: Alert and oriented x4 HEENT: NC/AT EOMI PERRLA-opiate cleared Heart: Regular rate and rhythm Abdomen: Soft distended, obese, mild epigastric and left lower quadrant tenderness palpation, reducible ventral hernia Extremities: No clubbing cyanosis edema Neuro: Moves all four extremity, cranial nerves grossly intact, no asterixis Labs/Diagnostic Data Labs Test 11/13/24 14:22 11/13/24 06:47 11/13/24 06:01 Range/Units White Blood Count 6.2 4.4-10.8 10^3/uL Red Blood Count 4.74 4.0-5.20 10^6/uL Hemoglobin 14.3 12.2-16.2 g/dL Hematocrit 41.9 36.0-46.0 % Mean Corpuscular Volume 88.3 80.0-100.0 fL Mean Corpuscular Hemoglobin 30.1 28.0-32.0 pg Mean Corpuscular Hemoglobin Concent 34.1 32.0-36.0 g/dL Red Cell Distribution Width 13.8 11.8-14.3 % Platelet Count 263 140-450 10^3/uL Mean Platelet Volume 9.4 6.9-10.8 fL Neutrophils (%) (Auto) 58.4 37.0-80.0 % Lymphocytes (%) (Auto) 29.3 10.0-50.0 % Monocytes (%) (Auto) 7.0 0.0-12.0 % Eosinophils (%) (Auto) 3.9 0.0-7.0 % Basophils (%) (Auto) 1.4 0.0-2.0 % Neutrophils # (Auto) 3.6 1.6-8.6 10 ^3/uL Lymphocytes # (Auto) 1.8 0.4-5.4 10 ^3/uL Monocytes # (Auto) 0.4 0-1.3 10 ^3/uL Eosinophils # (Auto) 0.2 0-0.8 10 ^3/uL Basophils # (Auto) 0.1 0-0.2 10 ^3/uL Nucleated Red Blood Cells 0.1 % Prothrombin Time 10.0 9.3-11.8 sec Prothrombin Time INR 0.94 0.9-1.15 Activated Partial Thromboplast Time 27.6 24.5-34.5 SEC Sodium Level 145 136-145 mmol/L Potassium Level 4.1 3.5-5.1 mmol/L Chloride Level 111 H 98-107 mmol/L Carbon Dioxide Level 28 20-31 mmol/L Anion Gap 6 5-15 Blood Urea Nitrogen 19 9-23 mg/dL Creatinine 0.69 0.550-1.02 mg/dL Glomerular Filtration Rate Calc 100 >90 mL/min BUN/Creatinine Ratio 27.5 H 10.0-20.0 Serum Glucose 92 74-106 mg/dL Lactic Acid Level 0.9 0.4-2.0 mmol/L Calcium Level 9.6 8.7-10.4 mg/dL Total Bilirubin 0.5 0.2-1.0 mg/dL Aspartate Amino Transferase (AST) 27 13-40 U/L Alanine Aminotransferase (ALT) 28 7-40 U/L Alkaline Phosphatase 128 H 46-116 U/L Troponin I High Sensitivity < 3 L </=34 ng/L Total Protein 7.1 5.7-8.2 g/dL Albumin 4.6 3.2-4.8 g/dL Lipase 55 H 12-53 U/L Urine Color Light-yellow Yellow Urine Clarity Cloudy H Clear Urine pH 6.5 5.0-9.0 Urine Specific [place] 1.023 1.001-1.035 Urine Protein Negative Negative Urine Ketones Negative Negative Urine Blood Negative Negative /uL Urine Nitrite Negative Negative Urine Bilirubin Negative Negative Urine Urobilinogen Normal Negative mg/dL Urine Leukocyte Esterase 2+ Negative /uL Urine RBC None seen 0 - 4 /hpf Urine Microscopic WBC 3 0-5 /HPF Urine Squamous Epithelial Cells Few <5 /hpf Urine Bacteria Few H None Seen /hpf Urine Mucus Few None Seen Urine Glucose Normal Normal mg/dL Assessment 1. Recurrent ventral and left inguinal hernias 2. Hematochezia 3. Chronic constipation 4. History of diverticulosis 5. Epigastric abdominal pain and nausea Differential diagnosis includes diverticulosis, versus hemorrhoids versus polyp versus malignancy versus other. Supraumbilical hernia noted with possible incarceration on CT scan however hernia is reducible. Problems(with codes): (1) Rectal bleeding (2) Incarcerated hernia (3) Chronic back pain Plan/Recommendation 1. . Surgical follow up for hernias. Surgery per Dr. Alexis 2. Follow H and H 3. Transfuse as needed 4. Patient will need a colonoscopy with martin Alexis 5. Caution with medications or can constipate 6. Pain control 7. Clear liquid diet 8. Continue with proton pump inhibitor 9. We will start IV fluid Plan discussed with: Patient MILADIS MARI MD Nov 13, 2024 16:49
[2024-11-13] MEDS: SODIUM CHLORIDE 0.9% 1,000 ML IV SCH (16:59)
[2024-11-13 17:01] VITALS: BP 121/77; PULSE 58; RESP 16; TEMP 97.8; O2SAT 98
[2024-11-13 20:00] VITALS: PULSE 60; RESP 18; O2SAT 96
[2024-11-13 21:00] VITALS: BP 119/74; PULSE 60; RESP 18; TEMP 98; O2SAT 96
[2024-11-14] VITALS (8 sets, daily range): BP systolic 120–146; BP diastolic 70–100; PULSE 61–78; RESP 16–18; TEMP 97.7–98.4; O2SAT 90–99
--- NOTE | 2024-11-14 12:02 | DVHPN2 ---
Progress Note Date Seen: Nov 14, 2024 Medical Necessity Reason Pt with a Central, PICC or Fol: No Objective vital signs Vital Sign Date Time Temp Pulse Resp B/P (MAP) Pulse Ox O2 Delivery O2 Flow Rate FiO2 11/14/24 09:00 97.7 67 16 120/82 (95) 96 97.7 11/13/24 20:00 Room Air* 0 21 Total Intake and Output 11/13/24 11/13/24 11/14/24 15:00 23:00 07:00 Intake Total 200 ml 1625 ml Balance 200 ml 1625 ml medications Current Medications Medications Dose Ordered Sig/Pastor Route Start Time Stop Time Status Last Admin Dose Admin Docusate Sodium 100 mg BID PO 11/13/24 10:00 11/13/24 22:19 100 MG Morphine Sulfate 1 mg Q4HPRN PRN IV 11/13/24 09:15 Acetaminophen/ Hydrocodone Bitart 1 tab Q6HPRN PRN PO 11/13/24 09:15 11/14/24 06:38 1 TAB Acetaminophen 500 mg Q8HP PRN PO 11/13/24 09:15 Ondansetron HCl 4 mg Q6HP PRN IV 11/13/24 09:15 Lisinopril 5 mg DAILY PO 11/13/24 10:00 11/13/24 10:20 5 MG Pantoprazole Sodium 40 mg DAILY IV 11/14/24 10:00 Sodium Chloride 1,000 ml @ 75 mls/hr [id number] IV 11/13/24 16:45 11/14/24 06:30 75 MLS/HR laboratory and microbiology Laboratory Tests 11/13/24 06:47 Test 11/13/24 06:47 Range/Units Serum Glucose 92 74-106 mg/dL Microbiology Date/Time Source Procedure Growth Status 11/13/24 06:01 Voided Urine Urine Culture - Preliminary Resulted Problem List/Assessment/Plan Problem List/Assessment/Plan AFEBRILE VSS ABD SOFT MINIMALLY TENDER NO INCARCERATED VENTRAL HERNIA NO BM NO FLATUS R/O SBO ILEUS GASTROGRAFIN STUDY SMALL BOWEL FOLLOW THROUGH NURSE AT BEDSIDE Plan discussed with: Patient My Orders My Orders Orders - ZACK NUNO MD Procedure Category Date Status Time * Gi Dvh Refrigeration Supervisor CONS 11/13/24 Transmitted 15:52 Npo (Nothing By DIET 11/13/24 Transmitted Mouth) Diet Dinner ZACK NUNO MD Nov 14, 2024 12:02
[2024-11-14] MEDS: PANTOPRAZOLE 40 MG/10 ML VIAL INJ IV SCH (12:06)
--- NOTE | 2024-11-14 12:48 | DVHPN2 ---
Reviewed: Care Plan, H&P, Labs, Medications, Previous Orders, Radiology Changes from previous H/P or p: No Changes Eyes: No Pain, No Vision change, No Conjunctivae inflammation, No Eyelid inflammation, No Other, No Redness ENT: No Ear pain, No Ear discharge, No Nose pain, No Nose discharge, No Nose congestion, No Mouth pain, No Mouth swelling, No Throat pain, No Throat swelling, No Other Cardiovascular: No Chest Pain, No Palpitations, No Orthopnea, No Paroxysmal Noc. Dyspnea, No Edema, No Lt Headedness, No Other Respiratory: No Cough, No Dry, No Shortness of breath, No SOB with excertion, No Wheezing, No Hemoptysis, No Pleuritic Pain, No Sputum, No Other Gastrointestinal: Abdominal Pain, Constipation Genitourinary: No Dysuria, No Frequency, No Incontinence, No Hematuria, No Retention, No Other Musculoskeletal: No other, No neck pain, No shoulder pain, No arm pain, No back pain, No hand pain, No leg pain, No foot pain Skin: No Rash, No Lesions, No Jaundice, No Bruising, No Other Objective Vitals Vital Signs Date Time Temp Pulse Resp B/P (MAP) Pulse Ox O2 Delivery O2 Flow Rate FiO2 11/14/24 12:10 125/78 11/14/24 09:00 97.7 67 16 96 97.7 11/13/24 20:00 Room Air* 0 21 Intake/Output Intake and Output 11/14/24 07:00 Intake Total 1825 ml Balance 1825 ml Intake Oral 1000 ml IV Total 825 ml # Voids 5 # Bowel Movements 1 Medications Current Medications Medications Dose Ordered Sig/Pastor Route Start Time Stop Time Status Last Admin Dose Admin Docusate Sodium 100 mg BID PO 11/13/24 10:00 11/14/24 12:11 100 MG Morphine Sulfate 1 mg Q4HPRN PRN IV 11/13/24 09:15 Acetaminophen/ Hydrocodone Bitart 1 tab Q6HPRN PRN PO 11/13/24 09:15 11/14/24 06:38 1 TAB Acetaminophen 500 mg Q8HP PRN PO 11/13/24 09:15 Ondansetron HCl 4 mg Q6HP PRN IV 11/13/24 09:15 Lisinopril 5 mg DAILY PO 11/13/24 10:00 11/14/24 12:10 5 MG Pantoprazole Sodium 40 mg DAILY IV 11/14/24 10:00 11/14/24 12:06 40 MG Sodium Chloride 1,000 ml @ 75 mls/hr [id number] IV 11/13/24 16:45 11/14/24 06:30 75 MLS/HR Laboratory Results Laboratory Tests 11/13/24 06:47 Urinalysis Test 11/13/24 06:01 Urine Color Light-yellow (Yellow) Urine Clarity Cloudy (Clear) H Urine pH 6.5 (5.0-9.0) Urine Specific [place] 1.023 (1.001-1.035) Urine Protein Negative (Negative) Urine Ketones Negative (Negative) Urine Blood Negative /uL (Negative) Urine Nitrite Negative (Negative) Urine Bilirubin Negative (Negative) Urine Urobilinogen Normal mg/dL (Negative) Urine Leukocyte Esterase 2+ /uL (Negative) Urine RBC None seen /hpf (0 - 4) Urine Microscopic WBC 3 /HPF (0-5) Urine Squamous Epithelial Cells Few /hpf (<5) Urine Bacteria Few /hpf (None Seen) H Urine Mucus Few (None Seen) Urine Glucose Normal mg/dL (Normal) Microbiology Microbiology Date/Time Source Procedure Growth Status 11/13/24 06:01 Voided Urine Urine Culture - Preliminary Resulted Labs and/or images reviewed: Labs reviewed by me, Image(s) reviewed by me Assessment/Plan Assessment/Plan 1. Recurrent ventral and left inguinal hernias: Consult by surgeon Dr. Tia Alexis appreciated advised the patient does not have any incarceration of the hernia, advised small-bowel follow-through 2. Hematochezia 3. Chronic constipation: Consult by GI Dr. Harris appreciated 4. History of diverticulosis 5. Epigastric abdominal pain and nausea Plan discussed with: Patient Date of Service: Nov 14, 2024 Billing Provider: SWHETA KELLY MD Common Visit Codes: [id number] INP/OBS CARE(HIGH) SHWETA KELLY MD Nov 14, 2024 12:48
[2024-11-14 19:28] LABS: Basophils # (auto) 0 10 ^3/uL (0-0.2); Basophils % (auto) 0.6 % (0.0-2.0); Eosinophils # (auto) 0.2 10 ^3/uL (0-0.8); Eosinophils % (auto) 2.4 % (0.0-7.0); Hematocrit 41.1 % (36.0-46.0); Hemoglobin 13.5 g/dL (12.2-16.2); Lymphocytes # (auto) 2.2 10 ^3/uL (0.4-5.4); Lymphocytes % (auto) 32.8 % (10.0-50.0); Mean Corpuscular Hemoglobin 29.2 pg (28.0-32.0); Mean Corpuscular Volume 88.6 fL (80.0-100.0); Monocytes # (auto) 0.5 10 ^3/uL (0-1.3); Monocytes % (auto) 6.9 % (0.0-12.0); Neutrophils # (auto) 3.8 10 ^3/uL (1.6-8.6); Neutrophils % (auto) 57.3 % (37.0-80.0); Nucleated Red Blood Cells % 0.1 %; Platelet Count (auto) 226 10^3/uL (140-450); Red Blood Cells 4.63 10^6/uL (4.0-5.20); Red Cell Distribution Width 13.8 % (11.8-14.3); White Blood Cell 6.6 10^3/uL (4.4-10.8)
--- NOTE | 2024-11-14 22:33 | DVHPN2 ---
Progress Note - Dictate Date Seen: Nov 14, 2024 Medical Necessity Reason Pt with a Central, PICC or Fol: No Subjective No new complaints. Patient complains of ongoing left-sided abdominal pain Patient mostly complains of pain related to her hernia. She has not had any further rectal bleeding. Patient states she has had at least two or three colonoscopies within the last 10 years Her last colonoscopy was in 2022 which had shown some diverticulosis Patient has had previous hernia repair with a mesh She is also having some trouble with the urination vital signs Vital Sign Date Time Temp Pulse Resp B/P (MAP) Pulse Ox O2 Delivery O2 Flow Rate FiO2 11/14/24 21:00 97.8 63 17 146/84 (104) 90 97.8 11/14/24 20:00 Room Air* 0 21 Total Intake and Output 11/13/24 11/13/24 11/14/24 15:00 23:00 07:00 Intake Total 200 ml 1625 ml Balance 200 ml 1625 ml medications Current Medications Medications Dose Ordered Sig/Pastor Route Start Time Stop Time Status Last Admin Dose Admin Docusate Sodium 100 mg BID PO 11/13/24 10:00 11/14/24 21:57 Morphine Sulfate 1 mg Q4HPRN PRN IV 11/13/24 09:15 Acetaminophen/ Hydrocodone Bitart 1 tab Q6HPRN PRN PO 11/13/24 09:15 11/14/24 19:54 Acetaminophen 500 mg Q8HP PRN PO 11/13/24 09:15 Ondansetron HCl 4 mg Q6HP PRN IV 11/13/24 09:15 Lisinopril 5 mg DAILY PO 11/13/24 10:00 11/14/24 12:10 Pantoprazole Sodium 40 mg DAILY IV 11/14/24 10:00 11/14/24 12:06 Sodium Chloride 1,000 ml @ 75 mls/hr [id number] IV 11/13/24 16:45 11/14/24 19:54 objective General: Alert and oriented x4 HEENT: NC/AT EOMI PERRLA-opiate cleared Heart: Regular rate and rhythm Abdomen: Soft distended, obese, mild epigastric and left lower quadrant tenderness palpation, reducible ventral hernia Extremities: No clubbing cyanosis edema Neuro: Moves all four extremity, cranial nerves grossly intact, no asterixis laboratory and microbiology Laboratory Tests 11/14/24 19:09 11/13/24 06:47 Test 11/13/24 06:47 Range/Units Serum Glucose 92 74-106 mg/dL Problems(with codes): (1) Incarcerated hernia (2) UTI (urinary tract infection) (3) Rectal bleeding Prognosis Plan/Recommendation 1. . Surgical follow up for hernias. Surgery per Dr. Alexis 2. Follow H and H 3. Transfuse as needed 4. I do not believe she needs a repeat colonoscopy at this time as she has had couple of negative Once the with the last being in 2022 5. Caution with medications or can constipate, avoid narcotics 6. Pain control 7. Clear liquid diet , advance to full liquid diet 8. Continue with proton pump inhibitor 9. We will start IV fluid 10. I will follow up patient with you and discuss with surgical consult Plan discussed with: Patient, Daughter YAMILE ALEXIS MD Nov 14, 2024 22:33
[2024-11-14] MEDS: MELATONIN 5 MG TAB PO ONE (23:21)
[2024-11-15] VITALS (8 sets, daily range): BP systolic 104–129; BP diastolic 52–80; PULSE 61–75; RESP 15–20; TEMP 97.5–97.8; O2SAT 95–100
--- NOTE | 2024-11-15 11:43 | DVHPN2 ---
Reviewed: Care Plan, H&P, Labs, Medications, Previous Orders, Radiology Changes from previous H/P or p: No Changes Eyes: No Pain, No Vision change, No Conjunctivae inflammation, No Eyelid inflammation, No Other, No Redness ENT: No Ear pain, No Ear discharge, No Nose pain, No Nose discharge, No Nose congestion, No Mouth pain, No Mouth swelling, No Throat pain, No Throat swelling, No Other Cardiovascular: No Chest Pain, No Palpitations, No Orthopnea, No Paroxysmal Noc. Dyspnea, No Edema, No Lt Headedness, No Other Respiratory: No Cough, No Dry, No Shortness of breath, No SOB with excertion, No Wheezing, No Hemoptysis, No Pleuritic Pain, No Sputum, No Other Gastrointestinal: Abdominal Pain, Constipation Genitourinary: No Dysuria, No Frequency, No Incontinence, No Hematuria, No Retention, No Other Musculoskeletal: No other, No neck pain, No shoulder pain, No arm pain, No back pain, No hand pain, No leg pain, No foot pain Skin: No Rash, No Lesions, No Jaundice, No Bruising, No Other Objective Vitals Vital Signs Date Time Temp Pulse Resp B/P (MAP) Pulse Ox O2 Delivery O2 Flow Rate FiO2 11/15/24 10:28 129/75 11/15/24 09:00 97.7 61 15 96 97.7 11/15/24 07:46 Room Air* 0 21 Intake/Output Intake and Output 11/15/24 07:00 Intake Total 750 ml Balance 750 ml Intake Oral 0 ml IV Total 750 ml # Voids 4 Medications Current Medications Medications Dose Ordered Sig/Pastor Route Start Time Stop Time Status Last Admin Dose Admin Docusate Sodium 100 mg BID PO 11/13/24 10:00 11/14/24 21:57 100 MG Morphine Sulfate 1 mg Q4HPRN PRN IV 11/13/24 09:15 Acetaminophen/ Hydrocodone Bitart 1 tab Q6HPRN PRN PO 11/13/24 09:15 11/14/24 19:54 1 TAB Acetaminophen 500 mg Q8HP PRN PO 11/13/24 09:15 Ondansetron HCl 4 mg Q6HP PRN IV 11/13/24 09:15 Lisinopril 5 mg DAILY PO 11/13/24 10:00 11/15/24 10:28 5 MG Pantoprazole Sodium 40 mg DAILY IV 11/14/24 10:00 11/15/24 10:26 40 MG Sodium Chloride 1,000 ml @ 75 mls/hr [id number] IV 11/13/24 16:45 11/15/24 10:15 75 MLS/HR Laboratory Results Laboratory Tests 11/13/24 06:47 11/14/24 19:09 Urinalysis Test 11/13/24 06:01 Urine Color Light-yellow (Yellow) Urine Clarity Cloudy (Clear) H Urine pH 6.5 (5.0-9.0) Urine Specific [place] 1.023 (1.001-1.035) Urine Protein Negative (Negative) Urine Ketones Negative (Negative) Urine Blood Negative /uL (Negative) Urine Nitrite Negative (Negative) Urine Bilirubin Negative (Negative) Urine Urobilinogen Normal mg/dL (Negative) Urine Leukocyte Esterase 2+ /uL (Negative) Urine RBC None seen /hpf (0 - 4) Urine Microscopic WBC 3 /HPF (0-5) Urine Squamous Epithelial Cells Few /hpf (<5) Urine Bacteria Few /hpf (None Seen) H Urine Mucus Few (None Seen) Urine Glucose Normal mg/dL (Normal) Microbiology Microbiology Date/Time Source Procedure Growth Status 11/13/24 06:01 Voided Urine Urine Culture - Final Complete Labs and/or images reviewed: Labs reviewed by me, Image(s) reviewed by me Assessment/Plan Assessment/Plan 1. Recurrent ventral and left inguinal hernias: Consult by surgeon Dr. Tia Alexis appreciated advised the patient does not have any incarceration of the hernia, advised small-bowel follow-through which he has pending 2. Hematochezia 3. Chronic constipation: Consult by GI Dr. Harris appreciated 4. History of diverticulosis 5. Epigastric abdominal pain and nausea Plan discussed with: Patient Date of Service: Nov 15, 2024 Billing Provider: SHWETA KELLY MD Common Visit Codes: [id number] INP/OBS CARE(HIGH) SHWETA KELLY MD Nov 15, 2024 11:43
[2024-11-15] MEDS ORDERED: GASTROGRAFIN 120 ML SOL ONE (12:10)
--- NOTE | 2024-11-15 12:26 | DVHPN2 ---
Progress Note Date Seen: Nov 15, 2024 Resident Creating Document: JANNET NOLASCO RESIDENT Medical Necessity Reason Pt with a Central, PICC or Fol: No Subjective Review of Systems Patient complains of ongoing left-sided abdominal pain Patient mostly complains of pain related to her hernia. She has not had any further rectal bleeding. Patient states she has had at least two or three colonoscopies within the last 10 years Her last colonoscopy was in 2022 which had shown some diverticulosis Patient has had previous hernia repair with a mesh She is also having some trouble with the urination Objective vital signs Vital Sign Date Time Temp Pulse Resp B/P (MAP) Pulse Ox O2 Delivery O2 Flow Rate FiO2 11/15/24 10:28 129/75 11/15/24 09:00 97.7 61 15 96 97.7 11/15/24 07:46 Room Air* 0 21 Total Intake and Output 11/14/24 11/14/24 11/15/24 15:00 23:00 07:00 Intake Total 0 ml 750 ml Balance 0 ml 750 ml medications Current Medications Medications Dose Ordered Sig/Pastor Route Start Time Stop Time Status Last Admin Dose Admin Docusate Sodium 100 mg BID PO 11/13/24 10:00 11/14/24 21:57 100 MG Morphine Sulfate 1 mg Q4HPRN PRN IV 11/13/24 09:15 Acetaminophen/ Hydrocodone Bitart 1 tab Q6HPRN PRN PO 11/13/24 09:15 11/14/24 19:54 1 TAB Acetaminophen 500 mg Q8HP PRN PO 11/13/24 09:15 Ondansetron HCl 4 mg Q6HP PRN IV 11/13/24 09:15 Lisinopril 5 mg DAILY PO 11/13/24 10:00 11/15/24 10:28 5 MG Pantoprazole Sodium 40 mg DAILY IV 11/14/24 10:00 11/15/24 10:26 40 MG Sodium Chloride 1,000 ml @ 75 mls/hr [id number] IV 11/13/24 16:45 11/15/24 10:15 75 MLS/HR Examination General: Alert and oriented x4 HEENT: NC/AT EOMI PERRLA-opiate cleared Heart: Regular rate and rhythm Abdomen: Soft distended, obese, mild epigastric and left lower quadrant tenderness palpation, reducible ventral hernia Extremities: No clubbing cyanosis edema Neuro: Moves all four extremity, cranial nerves grossly intact, no asterixis laboratory and microbiology Laboratory Tests 11/14/24 19:09 11/13/24 06:47 Test 11/13/24 06:47 Range/Units Serum Glucose 92 74-106 mg/dL Microbiology Date/Time Source Procedure Growth Status 11/13/24 06:01 Voided Urine Urine Culture - Final Complete Problem List/Assessment/Plan Problem List/Assessment/Plan (1) Incarcerated hernia (2) UTI (urinary tract infection) (3) Rectal bleeding Plan - Surgical follow up for hernias. Surgery per Dr. Alexis - Follow H and H - Transfuse as needed - Pt does not need a repeat colonoscopy at this time as she has had couple of negative Once the with the last being in 2022 - Caution with medications or can constipate, avoid narcotics - Pain control - Clear liquid diet , advance to full liquid diet - Continue with proton pump inhibitor - Cont. IV fluid Thank you so much for the opportunity to consult on your patient. GI team will follow the patient. In case of any questions or concerns please feel free to reach out. Case discussed with Dr. Carolyn Alexis. The patient and caregiver team agreed to the plan. Plan discussed with: Patient JANNET NOLASCO RESIDENT Nov 15, 2024 12:26
[2024-11-15 15:43] LABS: Basophils # (auto) 0 10 ^3/uL (0-0.2); Basophils % (auto) 0.6 % (0.0-2.0); Eosinophils # (auto) 0.1 10 ^3/uL (0-0.8); Eosinophils % (auto) 0.9 % (0.0-7.0); Hematocrit 44.6 % (36.0-46.0); Hemoglobin 14.8 g/dL (12.2-16.2); Lymphocytes # (auto) 1.6 10 ^3/uL (0.4-5.4); Lymphocytes % (auto) 24.6 % (10.0-50.0); Mean Corpuscular Hemoglobin 29.3 pg (28.0-32.0); Mean Corpuscular Hgb Conc. 33.3 g/dL (32.0-36.0); Monocytes # (auto) 0.3 10 ^3/uL (0-1.3); Monocytes % (auto) 4.3 % (0.0-12.0); Neutrophils # (auto) 4.5 10 ^3/uL (1.6-8.6); Neutrophils % (auto) 69.6 % (37.0-80.0); Platelet Count (auto) 248 10^3/uL (140-450); Red Blood Cells 5.06 10^6/uL (4.0-5.20); Red Cell Distribution Width 13.7 % (11.8-14.3); White Blood Cell 6.5 10^3/uL (4.4-10.8)
[2024-11-15 16:02] LABS: Alanine Aminotransferase 24 U/L (7-40); Alkaline Phosphatase 105 U/L (46-116); Anion Gap 13 (5-15); Aspartate Aminotransferase 21 U/L (13-40); BUN/Creatinine Ratio 22.7 (10.0-20.0); Blood Urea Nitrogen 15 mg/dL (9-23); Calcium 10.1 mg/dL (8.7-10.4); Carbon Dioxide 24 mmol/L (20-31); Chloride 104 mmol/L (98-107); Potassium 4.3 mmol/L (3.5-5.1); Sodium 141 mmol/L (136-145); Total Protein 6.9 g/dL (5.7-8.2)
[2024-11-15 16:03] LABS: Albumin 4.6 g/dL (3.2-4.8)
[2024-11-15 16:04] LABS: Glucose 59 mg/dL (74-106)
--- NOTE | 2024-11-15 16:12 | DVH ---
Procedure: XY SMALL BOWEL SERIES-W GASTROGRA Reason for study/Clinical History: abd pain Comparison Study: None available at time of dictation. Technique: Single contrast small bowel series performed. FINDINGS/IMPRESSION: Initial nursing instructor view of the abdomen and pelvis appears demonstrates no acute process. Contrast is identified within the colon by 90 minutes.. This represents a normal small bowel transit time. If vertebral body fractures suspect of the thoracolumbar junction, lateral view is recommended .
--- NOTE | 2024-11-15 17:25 | DVHPN2 ---
Progress Note Date Seen: Nov 15, 2024 Medical Necessity Reason Pt with a Central, PICC or Fol: No Objective vital signs Vital Sign Date Time Temp Pulse Resp B/P (MAP) Pulse Ox O2 Delivery O2 Flow Rate FiO2 11/15/24 13:00 97.6 62 15 116/80 (92) 98 97.6 11/15/24 07:46 Room Air* 0 21 Total Intake and Output 11/14/24 11/14/24 11/15/24 15:00 23:00 07:00 Intake Total 0 ml 750 ml Balance 0 ml 750 ml medications Current Medications Medications Dose Ordered Sig/Pastor Route Start Time Stop Time Status Last Admin Dose Admin Docusate Sodium 100 mg BID PO 11/13/24 10:00 11/14/24 21:57 100 MG Morphine Sulfate 1 mg Q4HPRN PRN IV 11/13/24 09:15 Acetaminophen/ Hydrocodone Bitart 1 tab Q6HPRN PRN PO 11/13/24 09:15 11/14/24 19:54 1 TAB Acetaminophen 500 mg Q8HP PRN PO 11/13/24 09:15 Ondansetron HCl 4 mg Q6HP PRN IV 11/13/24 09:15 Lisinopril 5 mg DAILY PO 11/13/24 10:00 11/15/24 10:28 5 MG Pantoprazole Sodium 40 mg DAILY IV 11/14/24 10:00 11/15/24 10:26 40 MG Sodium Chloride 1,000 ml @ 75 mls/hr [id number] IV 11/13/24 16:45 11/15/24 10:15 75 MLS/HR laboratory and microbiology Laboratory Tests 11/15/24 14:58 Test 11/15/24 14:58 Range/Units Serum Glucose 59 L 74-106 mg/dL Microbiology Date/Time Source Procedure Growth Status 11/13/24 06:01 Voided Urine Urine Culture - Final Complete Problem List/Assessment/Plan Problem List/Assessment/Plan AFEBRILE VSS ABD SOFT MINIMALLY TENDER NO INCARCERATED VENTRAL HERNIA BM + FLATUS + RESOLVING SBO ILEUS GASTROGRAFIN STUDY SMALL BOWEL FOLLOW THROUGH NEG FOR SBO NURSE AT BEDSIDE ADVANCE DIET XIMENA Plan discussed with: Patient My Orders My Orders Orders - ZACK NUNO MD Procedure Category Date Status Time Small Bowel Series-W XY 11/15/24 Resulted Gastrogra 18:56 Advance Diet As LING 11/15/24 In Process Tolerated 17:15 Clear Liq Diet DIET 11/15/24 Transmitted Dinner Dietary Evaluation Review Comments: 1) Advance diet as medically feasible 2) Consider Cardiac diet as goal diet 3) Continue current plan of care Expected Outcomes/Goals: Pt will meet 75% estimated needs Fu 2-3 days ZACK NUNO MD Nov 15, 2024 17:25
[2024-11-16] VITALS (8 sets, daily range): BP systolic 94–133; BP diastolic 46–86; PULSE 58–87; RESP 16–20; TEMP 97.3–98.8; O2SAT 95–98
--- NOTE | 2024-11-16 09:39 | DVHPN2 ---
Progress Note Date Seen: Nov 16, 2024 Medical Necessity Reason Pt with a Central, PICC or Fol: No Objective vital signs Vital Sign Date Time Temp Pulse Resp B/P (MAP) Pulse Ox O2 Delivery O2 Flow Rate FiO2 11/16/24 09:10 133/86 11/16/24 08:00 87 17 97 Room Air* 0 21 11/16/24 05:00 97.3 97.3 Total Intake and Output 11/15/24 11/15/24 11/16/24 15:00 23:00 07:00 Intake Total 0 ml 600 ml Balance 0 ml 600 ml medications Current Medications Medications Dose Ordered Sig/Pastor Route Start Time Stop Time Status Last Admin Dose Admin Docusate Sodium 100 mg BID PO 11/13/24 10:00 11/15/24 21:07 100 MG Morphine Sulfate 1 mg Q4HPRN PRN IV 11/13/24 09:15 Acetaminophen/ Hydrocodone Bitart 1 tab Q6HPRN PRN PO 11/13/24 09:15 11/16/24 09:12 1 TAB Acetaminophen 500 mg Q8HP PRN PO 11/13/24 09:15 Ondansetron HCl 4 mg Q6HP PRN IV 11/13/24 09:15 Lisinopril 5 mg DAILY PO 11/13/24 10:00 11/16/24 09:10 5 MG Pantoprazole Sodium 40 mg DAILY IV 11/14/24 10:00 11/16/24 09:10 40 MG Sodium Chloride 1,000 ml @ 75 mls/hr [id number] IV 11/13/24 16:45 11/16/24 03:57 75 MLS/HR laboratory and microbiology Laboratory Tests 11/15/24 14:58 Test 11/15/24 14:58 Range/Units Serum Glucose 59 L 74-106 mg/dL Microbiology Date/Time Source Procedure Growth Status 11/13/24 06:01 Voided Urine Urine Culture - Final Complete Problem List/Assessment/Plan Problem List/Assessment/Plan AFEBRILE VSS ABD SOFT MINIMALLY TENDER NO INCARCERATED VENTRAL HERNIA BM + FLATUS + RESOLVING SBO ILEUS GASTROGRAFIN STUDY SMALL BOWEL FOLLOW THROUGH NEG FOR SBO NURSE AT BEDSIDE ADVANCE DIET XIMENA CLEARED FOR DISCHARGE Plan discussed with: Patient My Orders My Orders Orders - ZACK NUNO MD Procedure Category Date Status Time Advance Diet As LING 11/15/24 In Process Tolerated 17:15 Full Liq Diet DIET 11/16/24 Transmitted Breakfast Soft Diet DIET 11/16/24 Transmitted Lunch Dietary Evaluation Review Comments: 1) Advance diet as medically feasible 2) Consider Cardiac diet as goal diet 3) Continue current plan of care Expected Outcomes/Goals: Pt will meet 75% estimated needs Fu 2-3 days ZACK NUNO MD Nov 16, 2024 09:39
--- NOTE | 2024-11-16 12:31 | DVHPN2 ---
Reviewed: Care Plan, H&P, Labs, Medications, Previous Orders, Radiology Changes from previous H/P or p: No Changes Eyes: No Pain, No Vision change, No Conjunctivae inflammation, No Eyelid inflammation, No Other, No Redness ENT: No Ear pain, No Ear discharge, No Nose pain, No Nose discharge, No Nose congestion, No Mouth pain, No Mouth swelling, No Throat pain, No Throat swelling, No Other Cardiovascular: No Chest Pain, No Palpitations, No Orthopnea, No Paroxysmal Noc. Dyspnea, No Edema, No Lt Headedness, No Other Respiratory: No Cough, No Dry, No Shortness of breath, No SOB with excertion, No Wheezing, No Hemoptysis, No Pleuritic Pain, No Sputum, No Other Gastrointestinal: Abdominal Pain, Constipation Genitourinary: No Dysuria, No Frequency, No Incontinence, No Hematuria, No Retention, No Other Musculoskeletal: No other, No neck pain, No shoulder pain, No arm pain, No back pain, No hand pain, No leg pain, No foot pain Skin: No Rash, No Lesions, No Jaundice, No Bruising, No Other Objective Vitals Vital Signs Date Time Temp Pulse Resp B/P (MAP) Pulse Ox O2 Delivery O2 Flow Rate FiO2 11/16/24 09:10 133/86 11/16/24 09:00 97.5 87 17 97 97.5 11/16/24 08:00 Room Air* 0 21 Intake/Output Intake and Output 11/16/24 07:00 Intake Total 600 ml Balance 600 ml Intake Oral 600 ml Tube Feeding 0 ml # Voids 9 # Bowel Movements 6 Medications Current Medications Medications Dose Ordered Sig/Pastor Route Start Time Stop Time Status Last Admin Dose Admin Docusate Sodium 100 mg BID PO 11/13/24 10:00 11/15/24 21:07 100 MG Morphine Sulfate 1 mg Q4HPRN PRN IV 11/13/24 09:15 Acetaminophen/ Hydrocodone Bitart 1 tab Q6HPRN PRN PO 11/13/24 09:15 11/16/24 09:12 1 TAB Acetaminophen 500 mg Q8HP PRN PO 11/13/24 09:15 Ondansetron HCl 4 mg Q6HP PRN IV 11/13/24 09:15 Lisinopril 5 mg DAILY PO 11/13/24 10:00 11/16/24 09:10 5 MG Pantoprazole Sodium 40 mg DAILY IV 11/14/24 10:00 11/16/24 09:10 40 MG Sodium Chloride 1,000 ml @ 75 mls/hr [id number] IV 11/13/24 16:45 11/16/24 03:57 75 MLS/HR Laboratory Results Laboratory Tests 11/15/24 14:58 Chemistry Test 11/15/24 14:58 Albumin 4.6 g/dL (3.2-4.8) Calcium Level 10.1 mg/dL (8.7-10.4) Total Protein 6.9 g/dL (5.7-8.2) LFT Test 11/15/24 14:58 Alanine Aminotransferase (ALT) 24 U/L (7-40) Alkaline Phosphatase 105 U/L (46-116) Aspartate Amino Transferase (AST) 21 U/L (13-40) Total Bilirubin 1.0 mg/dL (0.2-1.0) Urinalysis Test 11/13/24 06:01 Urine Color Light-yellow (Yellow) Urine Clarity Cloudy (Clear) H Urine pH 6.5 (5.0-9.0) Urine Specific [place] 1.023 (1.001-1.035) Urine Protein Negative (Negative) Urine Ketones Negative (Negative) Urine Blood Negative /uL (Negative) Urine Nitrite Negative (Negative) Urine Bilirubin Negative (Negative) Urine Urobilinogen Normal mg/dL (Negative) Urine Leukocyte Esterase 2+ /uL (Negative) Urine RBC None seen /hpf (0 - 4) Urine Microscopic WBC 3 /HPF (0-5) Urine Squamous Epithelial Cells Few /hpf (<5) Urine Bacteria Few /hpf (None Seen) H Urine Mucus Few (None Seen) Urine Glucose Normal mg/dL (Normal) Microbiology Microbiology Date/Time Source Procedure Growth Status 11/13/24 06:01 Voided Urine Urine Culture - Final Complete Labs and/or images reviewed: Labs reviewed by me, Image(s) reviewed by me Assessment/Plan Assessment/Plan 1. Recurrent ventral and left inguinal hernias: Consult by surgeon Dr. Tia Alexis appreciated advised the patient does not have any incarceration of the hernia, 2 Small-bowel follow-through series negative, patient has had good bowel mvement 2. Hematochezia 3. Chronic constipation: Consult by GI Dr. Harris appreciated 4. History of diverticulosis 5. Epigastric abdominal pain and nausea Advance diet as tolerated Possible DC tomorrow Plan discussed with: Patient Date of Service: Nov 16, 2024 Billing Provider: SHWETA KELLY MD Common Visit Codes: [id number] INP/OBS CARE(HIGH) SHWETA KELLY MD Nov 16, 2024 12:31
--- NOTE | 2024-11-16 16:41 | DVHPN2 ---
Progress Note Date Seen: Nov 16, 2024 Resident Creating Document: JANNET NOLASCO RESIDENT Medical Necessity Reason Pt with a Central, PICC or Fol: No Subjective Review of Systems Patient complains of ongoing left-sided abdominal pain Patient mostly complains of pain related to her hernia. She has not had any further rectal bleeding. Patient states she has had at least two or three colonoscopies within the last 10 years Her last colonoscopy was in 2022 which had shown some diverticulosis Patient has had previous hernia repair with a mesh She is also having some trouble with the urination Objective vital signs Vital Sign Date Time Temp Pulse Resp B/P (MAP) Pulse Ox O2 Delivery O2 Flow Rate FiO2 11/16/24 13:00 98.8 72 16 115/65 (82) 95 98.8 11/16/24 08:00 Room Air* 0 21 Total Intake and Output 11/15/24 11/15/24 11/16/24 15:00 23:00 07:00 Intake Total 0 ml 600 ml Balance 0 ml 600 ml medications Current Medications Medications Dose Ordered Sig/Pastor Route Start Time Stop Time Status Last Admin Dose Admin Docusate Sodium 100 mg BID PO 11/13/24 10:00 11/15/24 21:07 100 MG Morphine Sulfate 1 mg Q4HPRN PRN IV 11/13/24 09:15 Acetaminophen/ Hydrocodone Bitart 1 tab Q6HPRN PRN PO 11/13/24 09:15 11/16/24 09:12 1 TAB Acetaminophen 500 mg Q8HP PRN PO 11/13/24 09:15 Ondansetron HCl 4 mg Q6HP PRN IV 11/13/24 09:15 Lisinopril 5 mg DAILY PO 11/13/24 10:00 11/16/24 09:10 5 MG Pantoprazole Sodium 40 mg DAILY IV 11/14/24 10:00 11/16/24 09:10 40 MG Sodium Chloride 1,000 ml @ 75 mls/hr [id number] IV 11/13/24 16:45 11/16/24 03:57 75 MLS/HR Examination General: Alert and oriented x4 HEENT: NC/AT EOMI PERRLA-opiate cleared Heart: Regular rate and rhythm Abdomen: Soft distended, obese, mild epigastric and left lower quadrant tenderness palpation, reducible ventral hernia Extremities: No clubbing cyanosis edema Neuro: Moves all four extremity, cranial nerves grossly intact, no asterixis laboratory and microbiology Laboratory Tests 11/15/24 14:58 Test 11/15/24 14:58 Range/Units Serum Glucose 59 L 74-106 mg/dL Microbiology Date/Time Source Procedure Growth Status 11/13/24 06:01 Voided Urine Urine Culture - Final Complete Problem List/Assessment/Plan Problem List/Assessment/Plan (1) Incarcerated hernia (2) UTI (urinary tract infection) (3) Rectal bleeding Plan - Surgical follow up for hernias. Surgery per Dr. Alexis - Follow H and H - Transfuse as needed - Pt does not need a repeat colonoscopy at this time as she has had couple of negative Once the with the last being in 2022 - Caution with medications or can constipate, avoid narcotics - Pain control - advanced diet as tolerated - Continue with proton pump inhibitor Patient is cleared for discharge from GI point of view Thank you so much for the opportunity to consult on your patient. GI team will follow the patient. In case of any questions or concerns please feel free to reach out. Case discussed with Dr. Carolyn Alexis. The patient and caregiver team agreed to the plan. Plan discussed with: Patient Dietary Evaluation Review Comments: 1) Advance diet as medically feasible 2) Consider Cardiac diet as goal diet 3) Continue current plan of care Expected Outcomes/Goals: Pt will meet 75% estimated needs Fu 2-3 days JANNET NOLASCO RESIDENT Nov 16, 2024 16:41
[2024-11-16] MEDS: MELATONIN 5 MG TAB PO ONE (21:37)
[2024-11-16] MEDS ORDERED: ARTIFICIAL TEARS 15ml EACHEYE PRN (22:45)
[2024-11-17 01:06] VITALS: BP 138/75; PULSE 70; RESP 17; TEMP 97.8; O2SAT 92
[2024-11-17 05:23] VITALS: BP 107/68; PULSE 63; RESP 18; TEMP 97.7; O2SAT 94
[2024-11-17 08:10] VITALS: PULSE 63; RESP 18; O2SAT 94
[2024-11-17 09:11] VITALS: BP 119/76; PULSE 70; RESP 16; TEMP 99.7; O2SAT 96
[2024-11-17] MEDS ORDERED: DOCU-94 PO (11:02)
--- NOTE | 2024-11-17 11:05 | DVHDS2 ---
Discharge Summary Date of Admission Nov 13, 2024 at 09:19 Date of Discharge: Nov 17, 2024 Admitting Diagnosis Abdominal Pain nausea and vomiting Wounds: None Labs/Diagnostic Data: Laboratory Results Test 11/15/24 14:58 11/13/24 14:22 11/13/24 06:47 11/13/24 06:01 White Blood Count 6.5 10^3/uL (4.4-10.8) Red Blood Count 5.06 10^6/uL (4.0-5.20) Hemoglobin 14.8 g/dL (12.2-16.2) Hematocrit 44.6 % (36.0-46.0) Mean Corpuscular Volume 88.0 fL (80.0-100.0) Mean Corpuscular Hemoglobin 29.3 pg (28.0-32.0) Mean Corpuscular Hemoglobin Concent 33.3 g/dL (32.0-36.0) Red Cell Distribution Width 13.7 % (11.8-14.3) Platelet Count 248 10^3/uL (140-450) Mean Platelet Volume 9.8 fL (6.9-10.8) Neutrophils (%) (Auto) 69.6 % (37.0-80.0) Lymphocytes (%) (Auto) 24.6 % (10.0-50.0) Monocytes (%) (Auto) 4.3 % (0.0-12.0) Eosinophils (%) (Auto) 0.9 % (0.0-7.0) Basophils (%) (Auto) 0.6 % (0.0-2.0) Neutrophils # (Auto) 4.5 10 ^3/uL (1.6-8.6) Lymphocytes # (Auto) 1.6 10 ^3/uL (0.4-5.4) Monocytes # (Auto) 0.3 10 ^3/uL (0-1.3) Eosinophils # (Auto) 0.1 10 ^3/uL (0-0.8) Basophils # (Auto) 0 10 ^3/uL (0-0.2) Nucleated Red Blood Cells 0.0 % Sodium Level 141 mmol/L (136-145) Potassium Level 4.3 mmol/L (3.5-5.1) Chloride Level 104 mmol/L (98-107) Carbon Dioxide Level 24 mmol/L (20-31) Anion Gap 13 (5-15) Blood Urea Nitrogen 15 mg/dL (9-23) Creatinine 0.66 mg/dL (0.550-1.02) Glomerular Filtration Rate Calc 101 mL/min (>90) BUN/Creatinine Ratio 22.7 (10.0-20.0) Serum Glucose 59 mg/dL (74-106) Calcium Level 10.1 mg/dL (8.7-10.4) Total Bilirubin 1.0 mg/dL (0.2-1.0) Aspartate Amino Transferase (AST) 21 U/L (13-40) Alanine Aminotransferase (ALT) 24 U/L (7-40) Alkaline Phosphatase 105 U/L (46-116) Total Protein 6.9 g/dL (5.7-8.2) Albumin 4.6 g/dL (3.2-4.8) Stool Occult Blood Positive (Negative) Stool Occult Blood Sample #2 (Negative) Stool Occult Blood Sample #3 (Negative) Prothrombin Time 10.0 sec (9.3-11.8) Prothrombin Time INR 0.94 (0.9-1.15) Activated Partial Thromboplast Time 27.6 SEC (24.5-34.5) Lactic Acid Level 0.9 mmol/L (0.4-2.0) Troponin I High Sensitivity < 3 ng/L (</=34) Lipase 55 U/L (12-53) Urine Color Light-yellow (Yellow) Urine Clarity Cloudy (Clear) Urine pH 6.5 (5.0-9.0) Urine Specific [place] 1.023 (1.001-1.035) Urine Protein Negative (Negative) Urine Ketones Negative (Negative) Urine Blood Negative /uL (Negative) Urine Nitrite Negative (Negative) Urine Bilirubin Negative (Negative) Urine Urobilinogen Normal mg/dL (Negative) Urine Leukocyte Esterase 2+ /uL (Negative) Urine RBC None seen /hpf (0 - 4) Urine Microscopic WBC 3 /HPF (0-5) Urine Squamous Epithelial Cells Few /hpf (<5) Urine Bacteria Few /hpf (None Seen) Urine Mucus Few (None Seen) Urine Glucose Normal mg/dL (Normal) Other Laboratory Tests 11/15/24 14:58 Brief Hx & Hospital Course: 59-year-old female came in complaining of abdominal pain nausea and vomiting patient has a history of chronic constipation. CT abdomen pelvis without contrast showed recurrent Ventolin left inguinal hernia seen by surgeon Dr. Tia Alexis advised the patient does not have any incarceration of the hernia patient was treated with the NG suction IV fluids and pain management seen by GI Dr. Palacios. Patient had good bowel movement and no pain at the present time ambulating wants to go home. Discharged home on [place]. Consults/Reason for consult Surgeon Dr. Tia palacios Operations or Procedures CT abdomen pelvis without contrast Condition at Discharge: Fair Final Diagnosis/Problems List 1. Recurrent ventral and left inguinal hernias: Consult by surgeon Dr. Tia Alexis appreciated advised the patient does not have any incarceration of the hernia, 2 Small-bowel follow-through series negative, patient has had good bowel mvement 2. Hematochezia 3. Chronic constipation: Consult by ALEX Palacios appreciated 4. History of diverticulosis 5. Epigastric abdominal pain and nausea RESOLVED Discharge Disposition: Home Discharge Instruct/Medications Diet: Regular Activity: Light activity Follow Up/Referral: FOLLOW UP WITH THE PRIMARY DR Medications: COLACE SENT TO THE PHARMACY 35 (Time taken for discharge summary 35 minutes) Discharge Statement: "Patient was advised to return to the ER or call 911 if any headaches, dizziness, shortness of breath, chest pain, abdominal pain, bleeding, fevers, or worsening of medical condition. Patient was counseled about treatment plan, medications, possible side effects, patientverbalized understanding. All questions were answered to the best of my ability. This discharge took greater then 30 minutes in planning, reviewing documentation, counseling the patient, and discussing with other team members." ASSESSMENT ASSESSMENT Hospital Course Improved Assessment 1. Recurrent ventral and left inguinal hernias: Consult by surgeon Dr. Tia Alexis appreciated advised the patient does not have any incarceration of the hernia, 2 Small-bowel follow-through series negative, patient has had good bowel mvement 2. Hematochezia 3. Chronic constipation: Consult by GI Dr. Palacios appreciated 4. History of diverticulosis 5. Epigastric abdominal pain and nausea RESOLVED Date of Service: Nov 17, 2024 Billing Provider: SHWETA KELLY MD Common Visit Codes: 53688-UDD/OBS DISCH DAY >30min SHWETA KELLY MD Nov 17, 2024 11:05
[2024-11-17 12:47] VITALS: BP 119/68; PULSE 66; RESP 16; TEMP 97.7; O2SAT 98
[2024-11-17 13:43] VITALS: BP 112/68; PULSE 63; RESP 17; TEMP 36.5; O2SAT 98
--- NOTE | 2024-11-17 14:03 | DVHPN2 ---
Progress Note Date Seen: Nov 17, 2024 Resident Creating Document: JANNET NOLASCO RESIDENT Medical Necessity Reason Pt with a Central, PICC or Fol: No Subjective Review of Systems Patient complains of ongoing left-sided abdominal pain Patient mostly complains of pain related to her hernia. She has not had any further rectal bleeding. Patient states she has had at least two or three colonoscopies within the last 10 years Her last colonoscopy was in 2022 which had shown some diverticulosis Patient has had previous hernia repair with a mesh She is also having some trouble with the urination Objective vital signs Vital Sign Date Time Temp Pulse Resp B/P (MAP) Pulse Ox O2 Delivery O2 Flow Rate FiO2 11/17/24 13:43 36.5 63 17 98 11/17/24 12:47 119/68 (85) 11/17/24 08:10 Room Air* 0 21 Total Intake and Output 11/16/24 11/16/24 11/17/24 15:00 23:00 07:00 Intake Total 1725 ml 800 ml Balance 1725 ml 800 ml medications Current Medications Medications Dose Ordered Sig/Pastor Route Start Time Stop Time Status Last Admin Dose Admin Docusate Sodium 100 mg BID PO 11/13/24 10:00 11/17/24 09:01 100 MG Morphine Sulfate 1 mg Q4HPRN PRN IV 11/13/24 09:15 Acetaminophen/ Hydrocodone Bitart 1 tab Q6HPRN PRN PO 11/13/24 09:15 11/16/24 09:12 1 TAB Acetaminophen 500 mg Q8HP PRN PO 11/13/24 09:15 Ondansetron HCl 4 mg Q6HP PRN IV 11/13/24 09:15 Lisinopril 5 mg DAILY PO 11/13/24 10:00 11/17/24 09:01 5 MG Pantoprazole Sodium 40 mg DAILY IV 11/14/24 10:00 11/17/24 09:01 40 MG Sodium Chloride 1,000 ml @ 75 mls/hr [id number] IV 11/13/24 16:45 11/16/24 17:37 75 MLS/HR Artificial Tears 1 drop Q4HP PRN EACHEYE 11/16/24 22:45 Examination General: Alert and oriented x4 HEENT: NC/AT EOMI PERRLA-opiate cleared Heart: Regular rate and rhythm Abdomen: Soft distended, obese, mild epigastric and left lower quadrant tenderness palpation, reducible ventral hernia Extremities: No clubbing cyanosis edema Neuro: Moves all four extremity, cranial nerves grossly intact, no asterixis laboratory and microbiology Laboratory Tests 11/15/24 14:58 Test 11/15/24 14:58 Range/Units Serum Glucose 59 L 74-106 mg/dL Microbiology Date/Time Source Procedure Growth Status 11/13/24 06:01 Voided Urine Urine Culture - Final Complete Problem List/Assessment/Plan Problem List/Assessment/Plan (1) Incarcerated hernia (2) UTI (urinary tract infection) (3) Rectal bleeding Plan - Surgical follow up for hernias. Surgery per Dr. Alexis - Follow H and H - Transfuse as needed - Pt does not need a repeat colonoscopy at this time as she has had couple of negative Once the with the last being in 2022 - Caution with medications or can constipate, avoid narcotics - Pain control - advanced diet as tolerated - Continue with proton pump inhibitor Patient is cleared for discharge from GI point of view Thank you so much for the opportunity to consult on your patient. GI team will follow the patient. In case of any questions or concerns please feel free to reach out. Case discussed with Dr. Carolyn Alexis. The patient and caregiver team agreed to the plan. Plan discussed with: Patient Dietary Evaluation Review Comments: 1) Advance diet as medically feasible 2) Consider Cardiac diet as goal diet 3) Continue current plan of care Expected Outcomes/Goals: Pt will meet 75% estimated needs Fu 2-3 days JANNET NOLASCO RESIDENT Nov 17, 2024 14:03
== END 2024-11-17 17:00 | disposition home or self-care (01) | DRG 394 ==
LOC: ER 05:50 → UNDOADMIN 09:04 → OVERFLOW 09:04 → WEST WING 19:03
PROVIDERS: ADMIT Family Medicine; ATTEND Family Medicine
PROC: 0D9670Z Drainage of Stomach with Drainage Device, Via Natural or Artificial Opening (ICD-10-PCS; principal; 2024-11-13)
DX: K43.2 Incisional hernia without obstruction or gangrene (principal); K92.1 Melena; N39.0 Urinary tract infection, site not specified; E66.01 Morbid (severe) obesity due to excess calories; K59.09 Other constipation; K57.30 Diverticulosis of large intestine without perforation or abscess without bleeding; Z68.36 Body mass index [BMI] 36.0-36.9, adult; M54.9 Dorsalgia, unspecified; E78.5 Hyperlipidemia, unspecified; G89.4 Chronic pain syndrome; I10 Essential (primary) hypertension; M06.9 Rheumatoid arthritis, unspecified; M79.7 Fibromyalgia; Z79.891 Long term (current) use of opiate analgesic; K40.91 Unilateral inguinal hernia, without obstruction or gangrene, recurrent
CPT/HCPCS: 36415; 71045; 73562; 74176; 74250; 80053; 81001; 82270; 83605; 83690; 84484; 85025; 85610; 85730; 86850; 86900; 86901; 87086; 93971; 96365; 96375; 96376; G0378; J2470; J2543